=== PATIENT | female | born 1955 | race Caucasian/White ===

== ENCOUNTER 2019-10-15 08:44 | Outpatient (CLI) | payer OTHER, SELFPAY ==
--- NOTE | ~2019-10-15 | MR_ITS ---
EXAMINATION: MR shoulder RT wo con DATE: 10/15/2019 10:16 INDICATION: Right shoulder pain. TECHNIQUE: Magnetic resonance imaging (MRI) of the right shoulder was performed without intravenous c ontrast. Sequences included axial PD-weighted FS FSE, coronal oblique PD-weighted FS FSE and T2-weigh sunitha FS FSE, and sagittal oblique T2-weighted FS FSE and T1-weighted FSE. COMPARISON: Right shoulder radiographs 08/30/2019 FINDINGS: Coracoacromial arch: The acromion undersurface is curved in morphology (type II). There is moderate acromioclavicular join t osteoarthritis. There is moderate subacromial/subdeltoid bursitis. Rotator cuff: There is a bursal-sided partial-thickness tear of supraspinatus tendon at its distal insertion measur ing 6 mm anterior to posterior by 4 mm proximal to distal by 50% tendon thickness. There is an articu lar-sided, partial-thickness tear of the conjoined portion of the supraspinatus and infraspinous tend ons measuring 1.4 cm proximal to distal by 6 mm anterior to posterior by 50% tendon thickness. There is a 16 x 10 mm ganglion cyst in infraspinatus muscle at the level of the glenohumeral joint. Teres minor tendon is normal. There is mild subscapularis tendinopathy. There is no asymmetric fatty atroph y of the rotator cuff muscle bellies. Biceps tendon and glenoid labrum: Biceps tendon is in bicipital groove. There is moderate intra-articular biceps tendinopathy. There ar e degenerative tears of the glenoid labrum. Fluid: There is a moderate-sized glenohumeral joint effusion. Bones/cartilage: There is shallow partial-thickness cartilage loss of humeral head and glenoid. Osteophytes are noted. IMPRESSION: 1. Severe rotator cuff tendinopathy with partial-thickness tears. 2. Mild glenohumeral joint chondrosis. 3. Moderate-sized glenohumeral joint effusion. 4. Moderate subacromial/subdeltoid bursitis. 5. Moderate intra-articular biceps tendinopathy. 6. Moderate acromioclavicular joint osteoarthritis. Reviewed, dictated and finalized at location A.
== END 2019-10-15 08:45 | disposition home or self-care (01) ==
PROVIDERS: Visit Provider Orthopaedic Surgery
DX: M19.011 Primary osteoarthritis, right shoulder (principal); M75.51 Bursitis of right shoulder; M25.461 Effusion, right knee
CPT/HCPCS: 73221

== ENCOUNTER 2019-11-14 13:01 | Outpatient (CLI) | payer OTHER, SELFPAY ==
--- NOTE | 2019-11-14 13:13 | ECG_ITS ---
Measurements Intervals [place] Rate: 66 P: 30 HI: 142 QRS: 15 QRSD: 104 T: 37 QT: 388 QTc: 409 Interpretive Statements SINUS RHYTHM DELAYED PRECORDIAL R/S TRANSITION MINIMAL Q WAVES- INFERIOR LEADS BASELINE ARTIFACT- II, III, AVL, AVF BORDERLINE ECG Electronically Signed On 11-14-2019 13:33:07 CDT by Lorenzo Diaz D.O.
== END 2019-11-14 13:02 | disposition home or self-care (01) ==
PROVIDERS: PCP Family Medicine; Visit Provider Anesthesiology
DX: Z01.810 Encounter for preprocedural cardiovascular examination (principal); Z87.891 Personal history of nicotine dependence
CPT/HCPCS: 93005

== ENCOUNTER 2019-11-16 06:16 | Outpatient (CLI) | payer OTHER, SELFPAY ==
[2019-11-16 16:20] LABS: SARS-CoV-2 RNA PCR Negative
== END 2019-11-16 06:17 | disposition home or self-care (01) ==
LOC: ANHCOVIDDT 06:17
PROVIDERS: PCP Family Medicine; Visit Provider Orthopaedic Surgery
DX: Z01.818 Encounter for other preprocedural examination (principal); M75.101 Unspecified rotator cuff tear or rupture of right shoulder, not specified as traumatic; Z11.59 Encounter for screening for other viral diseases
CPT/HCPCS: 87635; C9803; U0003

== ENCOUNTER 2019-11-19 00:22 | Day surgery (SDC) | payer OTHER, SELFPAY ==
[2019-11-13 14:20] VITALS: BMI 36.1
[2019-11-19] VITALS (9 sets, daily range): BP systolic 106–135; BP diastolic 58–84; PULSE 68–87; RESP 13–20; TEMP 36.2; O2SAT 93–100
[2019-11-19] MEDS: LACTATED RINGERS 1,000 ML 30 ML IV CONT ×2 (06:45→08:49)
--- NOTE | 2019-11-19 06:53 | WPDANESEPPF ---
Anes - Initial Pre Proc Eval Procedure: Operation Date: 11/19/19 07:30 Proposed Procedures p Right Rotator Cuff Repair with Distal Clavicle Excision - Jhonathan Velasco MD Date/Time: 11/19/19 06:53 Surgeon: Jhonathan Velasco MD Pre Op Diagnosis: Right Rotator Cuff Tear, AC Arthritis Patient Data Age: 64 Gender: F Height: 5 ft 3 in Weight: 92.53 kg Allergies Allergy/AdvReac Type Severity Reaction Status Date / Time No Known Allergies Allergy Verified 11/13/19 14:21 Home Medications Medication Instructions Recorded Confirmed Type amitriptyline 50 mg tablet 50 mg PO HS 08/30/19 11/13/19 History omeprazole 40 mg capsule,delayed 40 mg PO DAILY 08/30/19 11/13/19 History release sertraline 100 mg tablet 100 mg PO DAILY 08/30/19 11/13/19 History tramadol 50 mg tablet 50 mg PO Q12H PRN #30 tablet 10/23/19 11/13/19 Rx L.acid-B.bifidum-B.animal-FOS 100 mg PO DAILY 11/13/19 11/13/19 History [Probiotic Complex] Vitamin D3 1 tablet PO DAILY 11/13/19 11/13/19 History ascorbic acid-collagen [Collagen 1 cap PO DAILY 11/13/19 11/13/19 History Plus Vitamin C] calcium carbonate [Calcium 600] 600 mg PO DAILY 11/13/19 11/13/19 History gabapentin 1,200 mg PO HS 11/13/19 11/13/19 History multivitamin 1 tablet PO DAILY 11/13/19 11/13/19 History omega 8-vin-bcn-fish oil [Fish Oil] 1 cap PO DAILY 11/13/19 11/13/19 History vitamin B complex 1 tablet PO DAILY 11/13/19 11/13/19 History zolpidem 5 mg PO HS PRN 11/13/19 11/13/19 History Patient hx anesthesia problems: none Family hx anesthesia problems: none PMFSH Past Medical History Medical History ADHD Allergies Anxiety disorder Arthritis Asthma Bronchitis Heartburn Perspiration excessive Pneumonia Trigger finger Surgical History Surgical History H/O: section 01/13/1998- Dr. Adamson History of appendectomy History of back surgery Dr. Baca History of carpal tunnel release History of cholecystectomy History of rotator cuff surgery left shoulder S/P trigger finger release Family History Family History Mother Hypertension Father Hypertension Social History Social History Smoking status: Former smoker Additional smoking assessment comments: Smoked for 30 years Alcohol intake: current Additional living arrangements comments: (Alvaro) and Son(Leola) Gender identity (if verbalized by the patient): Female Anes - Eval Final PreProcedure Day of Procedure 11/19/19 06:53 Patient weight: obese Heart: regular rate and rhythm Lungs: clear to auscultation Airway: Mallampati scale class II and other (clear upper plastic tertainer because of loose molar) Neurological: alert and oriented Last oral intake: >/= 8 hours ASA classification: III Emergent: no Anesthetic plan: proceed Anesthesia type and monitoring: general ETT and standard monitoring Informed Consent: The patient's anesthetic plan and its attendant risks and benefits were discussed with the patient/family/POA. Questions were solicited and answers provided to the satisfaction of the patient/family/POA.
--- NOTE | 2019-11-19 07:23 | WPDHPUPDATE1 ---
History and Physical Update Update Date/Time: 11/19/19 07:23 History and Physical has been reviewed, including an updated exam of the patient. There are NO changes in the patient's condition. Risks, benefits, and alternatives have been discussed and questions answered. Patient agrees to proceed with procedure.
[2019-11-19] MEDS: ceFAZolin 2 GM/D5W 50 ML 2 GM/50 ML BAG IVPB (07:30)
--- NOTE | 2019-11-19 07:41 | WPDANESPNB ---
Anes - Peripheral Nerve Block Date/Time: 11/19/19 07:41 I have discussed with the patient/family/POA the placement of a peripheral nerve block for post-operative pain management, including associated risks, benefits, complications, and side effects. Alternative methods of post-operative analgesia were detailed. Questions were solicited and answers provided to the satisfaction of the patient/family/POA. Time-Out: A pre-procedural Time-Out was completed immediately before starting the procedure and confirmed: Patient Identification, Site, Procedure, Patient Position and the Availability of Requisite Equipment. Clinical Indications: Acute post-operative pain management requested by the operative surgeon. Nerve Block Insertion Note Anes-nerve block: interscalene right Patient position: supine Skin prep: chlorhexidine Needle: 22 gauge, stimulating, insulated echogenic needle. Needle length: 50 mm Technique: nerve stimulation lost at (mA) (0.4) and ultrasound Injectate: bupivacaine 0.5% with epi 5 mcg/ml (30) and dexamethasone (mg) (8) Observations: tolerated well Complications: none Procedure start time:: Procedure end time:: 5
[2019-11-19] MEDS: BUPIVACAINE/EPINEPHRINE 0.25% 50 ML VIAL 10 ML INFILTRATE (08:02)
--- NOTE | 2019-11-19 09:06 | P.OP_ITS ---
Procedure Note - Detailed Date of procedure: 11/19/19 Pre-op diagnosis: Right Rotator Cuff Tear, AC Arthritis Post-op diagnosis: same Procedure performed: Right shoulder open anterior acromioplasty, distal clavicle excision and repair of the rotator cuff Description of procedure: Patient was identified and proper site identified. In the preop holding area the anesthesia team performed a right upper extremity block. She was then taken to the operating room and transferred to the or table taking care to pad the torso and extremities. After general anesthetic induction and intubation, she was put in a semi beach chair position in the u sual manner for a right shoulder procedure. Her head was secured taking care to neither rotate nor extend the head and neck. The right upper extremity was prepped and draped free in usual sterile fashion. The subcutaneous tissue in the area of the incision was injected with 10 cc of 0.25% Marcaine and epinephrine solution. An oblique anterior incision was made extending from the AC joint distally in line with the fibers of the deltoid. Subcutaneous tissue was sharply dissected down to the deltoid fascia. The deltoid was dissected off the anterior portion of the acromion in the distal end of the clavicle. A 2 cm split was made at the junction between the anterior and middle thirds of the deltoid. Using the microsagittal saw the last 8 mm of clavicle removed. The saw was also used to perform the acromioplasty and then the undersurface of the acromion was rasped smooth. The rotator cuff was examined. There was an area of near complete tearing of the anterior portion of the supraspinatus on the greater tuberosity. The thinned remaining portion of the tendon was released, the tendon edge freshened up and the tuberosity prepared for the repair. The repair was able to be accomplished with the patient's arm at her side. 2. Ethibond sutures passed through bone were used to repair the tendon back to the tuberosity and side to side repair also carried out with 2. Ethibond suture. This gave a arrington repair which was stable as the shoulder was taken through range of motion. The wound was irrigated with sterile NaCl solution. The deltoid was repaired back to the acromion with 2. Ethibond suture passed through bone and the remainder of the deltoid repair carried out with 2. Vicryl. Subcutaneous tissue was reapproximated with 2. Strata fix and then tissue adhesive used for the skin. Sterile dressing was applied. There were no known intraoperative complications, and perioperative antibiotics were administered. Surgeon: Jhonathan Velasco MD
[2019-11-19] MEDS: ONDANSETRON INJ 4 MG/2 ML VIAL IV PUSH (10:06)
== END 2019-11-19 10:50 | disposition home or self-care (01) ==
PROVIDERS: PCP Family Medicine; Visit Provider Orthopaedic Surgery
PROC: (CPT 23420; principal; 2019-11-19 07:30)
DX: M75.101 Unspecified rotator cuff tear or rupture of right shoulder, not specified as traumatic (principal); M19.011 Primary osteoarthritis, right shoulder; G89.18 Other acute postprocedural pain; J45.909 Unspecified asthma, uncomplicated; F90.9 Attention-deficit hyperactivity disorder, unspecified type; F41.9 Anxiety disorder, unspecified; Z87.891 Personal history of nicotine dependence; E66.9 Obesity, unspecified; Z68.36 Body mass index [BMI] 36.0-36.9, adult
CPT/HCPCS: 23412; 23120; 64415; A4565; J0690; J1100; J2250; J2405; J2704; J2710; J3010; J7120

== ENCOUNTER 2020-01-18 00:58 | Outpatient (CLI) | payer OTHER, SELFPAY ==
[2020-01-18 18:04] LABS: SARS-CoV-2 RNA PCR Negative
== END 2020-01-18 00:59 | disposition home or self-care (01) ==
LOC: ANHCOVIDDT 00:58
PROVIDERS: PCP Family Medicine; Visit Provider Orthopaedic Surgery
DX: Z01.812 Encounter for preprocedural laboratory examination (principal); Z11.59 Encounter for screening for other viral diseases
CPT/HCPCS: 87635; C9803; U0003

== ENCOUNTER 2020-01-21 03:02 | Day surgery (SDC) | payer OTHER, SELFPAY ==
[2020-01-10 08:56] VITALS: BMI 37.9
--- NOTE | 2020-01-21 10:20 | WPDHPUPDATE1 ---
History and Physical Update Update Date/Time: 01/21/20 10:20 History and Physical has been reviewed, including an updated exam of the patient. There are NO changes in the patient's condition. Risks, benefits, and alternatives have been discussed and questions answered. Patient agrees to proceed with procedure.
[2020-01-21 10:30] VITALS: BP 117/77; PULSE 70; RESP 18; TEMP 36.4; O2SAT 98
[2020-01-21] MEDS: KETOROLAC 15 MG/ML VIAL (*BKC) IV PUSH (10:30)
[2020-01-21] MEDS: LACTATED RINGERS 1,000 ML 30 ML IV CONT (10:30)
--- NOTE | 2020-01-21 10:33 | WPDANESEPPF ---
Anes - Initial Pre Proc Eval Procedure: Operation Date: 01/21/20 12:00 Proposed Procedures p Left Fourth Trigger Finger Release - Jhonathan Velasco MD Date/Time: 01/21/20 10:33 Surgeon: Jhonathan Velasco MD Pre Op Diagnosis: Left Fourth Trigger Finger Patient Data Age: 64 Gender: F Height: 5 ft 3 in Weight: 97.07 kg Allergies Allergy/AdvReac Type Severity Reaction Status Date / Time No Known Allergies Allergy Verified 01/10/20 08:57 Home Medications Medication Instructions Recorded Confirmed Type amitriptyline 50 mg tablet 50 mg PO HS 08/30/19 01/10/20 History omeprazole 40 mg capsule,delayed 40 mg PO DAILY 08/30/19 01/10/20 History release sertraline 100 mg tablet 100 mg PO DAILY 08/30/19 01/10/20 History tramadol 50 mg tablet 50 mg PO Q12H PRN #30 tablet 10/23/19 01/10/20 Rx Collagen Plus Vitamin C 1 cap PO DAILY 11/13/19 01/10/20 History Probiotic Complex 100 mg PO DAILY 11/13/19 01/10/20 History Vitamin D3 1 tablet PO DAILY 11/13/19 01/10/20 History calcium carbonate [Calcium 600] 600 mg PO DAILY 11/13/19 01/10/20 History gabapentin 1,200 mg PO HS 11/13/19 01/10/20 History multivitamin 1 tablet PO DAILY 11/13/19 01/10/20 History omega 2-jxd-pjm-fish oil [Fish Oil] 1 cap PO DAILY 11/13/19 01/10/20 History vitamin B complex 1 tablet PO DAILY 11/13/19 01/10/20 History zolpidem 5 mg PO HS PRN 11/13/19 01/10/20 History Patient hx anesthesia problems: post op nausea/vomiting Family hx anesthesia problems: none PMFSH Past Medical History Medical History ADHD Allergies Anxiety disorder Arthritis Asthma BMI 33.0-33.9,adult Bronchitis Heartburn Perspiration excessive Pneumonia Trigger finger Surgical History Surgical History H/O shoulder surgery Right shoulder open anterior acromioplasty November 2019 - Dr. Velasco H/O: section 01/13/1998- Dr. Adamson History of appendectomy History of back surgery Dr. Baca History of carpal tunnel release History of cholecystectomy History of rotator cuff surgery left shoulder S/P trigger finger release Family History Family History Mother Hypertension Father Hypertension Social History Social History Smoking packs per day: 1.5 Smoking cigarettes per day: 30.0 Years smoked: 25 Smoking pack-years: 37.50 Smoking status: Former smoker Tobacco type: cigarettes Additional smoking assessment comments: QUIT 20 YEARS AGO Alcohol intake: current Additional living arrangements comments: (Alvaro) and Son(Leola) Gender identity (if verbalized by the patient): Female Spiritual care concerns: No Anes - Eval Final PreProcedure Day of Procedure 01/21/20 10:33 Patient weight: obese Heart: regular rate and rhythm Lungs: clear to auscultation Airway: Mallampati scale class II Neurological: alert and oriented Last oral intake: >/= 8 hours ASA classification: II Emergent: no Anesthetic plan: proceed Anesthesia type and monitoring: general GIVS and standard monitoring Informed Consent: The patient's anesthetic plan and its attendant risks and benefits were discussed with the patient/family/POA. Questions were solicited and answers provided to the satisfaction of the patient/family/POA.
[2020-01-21] MEDS: ACETAMINOPHEN 500 MG TABLET 1000 MG PO (11:06)
[2020-01-21] MEDS: SCOPOLAMINE 1.5 MG PATCH TRANSDERM (11:07)
[2020-01-21] MEDS: ceFAZolin 2 GM/D5W 50 ML 2 GM/50 ML BAG IVPB (11:51)
[2020-01-21 12:23] VITALS: BP 109/68; PULSE 68; RESP 16; O2SAT 93
--- NOTE | 2020-01-21 12:30 | PM.PROC ---
Procedure Note - Detailed Date of procedure: 01/21/20 Pre-op diagnosis: Left Fourth Trigger Finger Post-op diagnosis: same Procedure performed: Left fourth trigger finger release Description of procedure: The patient was identified and proper site identified. She was taken to the operating room and transferred to the OR table placing her supine taking care to pad her torso and extremities. A nonsterile tourniquet was placed high on the left arm. Left upper extremity is prepped and draped free in the usual sterile fashion. After she was administered IV sedation, several cc of 4% plain Marcaine was injected into the subcutaneous tissue over the A1 rica of the left fourth digit. The extremities exsanguinated tourniquet was inflated to 200 mmHg remaining up for about 7 minutes. Longitudinal incision was made over the A1 rica. Subcutaneous tissue was bluntly dissected protecting neurovascular structures. A1 rica was identified and then divided longitudinally in line with the tendons. The tendons were delivered into the wound to verify the adequacy of the release. Wounds irrigated with sterile antibiotic solution. Hemostasis carried out. Skin edges reapproximated with four 0 nylon suture and a sterile dressing was applied. Tourniquet was released. She tolerated the procedure well was taken recovery area in stable condition. There were no known intraoperative complications. Estimated blood loss was negligible. She received perioperative antibiotics. Surgeon: Jhonathan Velasco MD Fringe Knotter: Amanuel Sotelo Estimated blood loss (mL): 1 Tourniquet time (min): 7 Drains: No Packing: No Pathology: none sent Complications: No immediate complications Condition: stable Disposition: PACU
[2020-01-21 12:55] VITALS: BP 126/70; PULSE 68
[2020-01-21 13:15] VITALS: BP 128/75; PULSE 61
== END 2020-01-21 13:25 | disposition home or self-care (01) ==
PROVIDERS: PCP Family Medicine; Visit Provider Orthopaedic Surgery
PROC: (CPT 26055; principal; 2020-01-21 12:00)
DX: M65.342 Trigger finger, left ring finger (principal); F90.9 Attention-deficit hyperactivity disorder, unspecified type; F41.1 Generalized anxiety disorder; J45.909 Unspecified asthma, uncomplicated; Z87.891 Personal history of nicotine dependence; E66.9 Obesity, unspecified; Z68.38 Body mass index [BMI] 38.0-38.9, adult
CPT/HCPCS: 26055; 87635; A9270; C9803; J0690; J1885; J2250; J2704; J3010; J7120; U0003

== ENCOUNTER 2020-05-15 07:45 | Outpatient (CLI) | payer OTHER, SELFPAY ==
--- NOTE | ~2020-05-15 | MM_ITS ---
EXAMINATION: MM screening deanna BI w bernie HISTORY: Screening TECHNIQUE: Craniocaudal and mediolateral oblique 3-D tomosynthesis images were obtained and synthetic 2-D images were generated. CAD analysis was submitted and interpreted. COMPARISON: 09/26/2018 BREAST PARENCHYMAL COMPOSITION: There are scattered areas of fibroglandular density. FINDINGS: There is no evidence of suspicious mass, calcification, or architectural distortion to sugg est malignancy in either breast. There has been no suspicious interval change. IMPRESSION: 1. No mammographic evidence of malignancy. 2. Recommend routine screening mammography in one year. BI-RADS Category 1: Negative Reviewed, dictated and finalized at location A. UTIVE COACH
== END 2020-05-15 07:46 | disposition home or self-care (01) ==
LOC: ANHIMG 07:48
PROVIDERS: PCP Family Medicine; Visit Provider Family Medicine
DX: Z12.31 Encounter for screening mammogram for malignant neoplasm of breast (principal)
CPT/HCPCS: 77063; 77067

== ENCOUNTER → 2020-07-22 12:26 | Outpatient (CLI) | payer OTHER, SELFPAY ==
--- NOTE | ~2020-07-22 | MR_ITS ---
EXAMINATION: MR cervical spine wo con DATE: 07/22/2020 13:22 INDICATION: Cervical myelopathy. TECHNIQUE: Magnetic resonance imaging (MRI) of the cervical spine was performed without intravenous c ontrast. Sequences included sagittal T2-weighted FSE, sagittal STIR FSE, sagittal T1-weighted FSE, ax ial MERGE, and axial T2-weighted FSE. COMPARISON: None FINDINGS: There is kyphosis of cervical spine. There is 3 degrees levocurvature of cervical spine. Th ere is 2 mm retrolisthesis of C4 on C5 and C5 on C6. Vertebral body heights are normal. There is mode rately decreased disc height at C4-C5 and C5-C6 and mildly decreased disc height at C6-C7. The spinal cord signal intensity is normal. The following disc levels are specifically discussed: C2-C3: The disc does not extend beyond the endplate margin. There is no uncovertebral joint osteoarth ritis. There is mild bilateral facet joint osteoarthritis. There is mild left neural foraminal stenos is. There is no central canal stenosis. C3-C4: The disc does not extend beyond the endplate margin. There is mild left uncovertebral joint os teoarthritis. There is no facet joint osteoarthritis. There is no neural foraminal stenosis. There is no central canal stenosis. C4-C5: The disc is bulging. There is severe right and moderate left uncovertebral joint osteoarthriti s. There is severe right and mild left facet joint osteoarthritis. There is moderate right and mild l eft neural foraminal stenosis. There is mild central canal stenosis with ventral indentation of the s melisa cord. C5-C6: The disc is bulging. There is severe bilateral uncovertebral joint osteoarthritis. There is mi ld right and moderate left facet joint osteoarthritis. There is mild bilateral neural foraminal steno sis. There is mild central canal stenosis with ventral indentation of the spinal cord. C6-C7: The disc is bulging. There is moderate bilateral uncovertebral joint osteoarthritis. There is mild bilateral facet joint osteoarthritis. There is mild bilateral neural foraminal stenosis. There i s mild central canal stenosis. C7-T1: The disc does not extend beyond the endplate margin. There is no uncovertebral joint osteoarth ritis. There is mild right and moderate left facet joint osteoarthritis. There is mild left neural fo raminal stenosis. There is no central canal stenosis. IMPRESSION: 1. Moderate cervical spondylosis. Reviewed, dictated and finalized at location A. ENT RELATIONS DIRECTOR
--- NOTE | ~2020-07-22 | MR_ITS ---
EXAMINATION: MR brain/brain stem wo con EXAM DATE: 07/22/2020 13:18 INDICATION: Generalized headache. Dizziness. TECHNIQUE: Magnetic resonance imaging (MRI) of the brain/brain stem obtained without contrast. Sagitt al T1, axial diffusion, gradient echo (T2*), T1, T2, FLAIR sequences obtained. Correlation is made t o head CT 02/23/2011. FINDINGS: There are no areas of restricted diffusion to suggest acute infarction. There is no acute hemorrhage seen on the T2*, a hemosiderin sensitive sequence. No intraparenchymal brain mass lesion. There is mild periventricular and subcortical T2/FLAIR signal hyperintensity, nonspecific but probab ly related to small vessel ischemic disease (microangiopathy). There is mild prominence of the sulc i and ventricles related to cerebral atrophy. There are no extra-axial collections. Flow voids are seen in the cerebral arteries on the T2-weighted sequences consistent with their expected patency. T he orbits are unremarkable. Soft tissue is unremarkable. IMPRESSION: 1. No acute intracranial findings. 2. Chronic age related findings. Reviewed, dictated and finalized at location B. 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
== END ==
PROVIDERS: PCP Family Medicine; Visit Provider Psychiatry & Neurology Neurology
DX: R51.9 Headache, unspecified (principal); G95.9 Disease of spinal cord, unspecified; M47.892 Other spondylosis, cervical region
CPT/HCPCS: 70551; 72141

== ENCOUNTER 2022-03-25 10:41 | Outpatient (CLI) | payer OTHER, SELFPAY ==
--- NOTE | ~2022-03-25 | MM_ITS ---
EXAMINATION: MM screening deanna BI w bernie HISTORY: Screening mammogram TECHNIQUE: Craniocaudal and mediolateral oblique 3-D tomosynthesis images were obtained and synthetic 2-D images were generated. CAD analysis was submitted and interpreted. COMPARISON: 05/15/2020, 09/26/2018 bilateral screening mammogram examinations BREAST PARENCHYMAL COMPOSITION: There are scattered areas of fibroglandular density. FINDINGS: Occasional bilateral benign calcifications. There is no evidence of suspicious mass, calcif ication, or architectural distortion to suggest malignancy in either breast. There has been no suspic ious interval change. IMPRESSION: 1. No mammographic evidence of malignancy. 2. Recommend routine screening mammography in one year. BI-RADS Category 1: Negative Reviewed, dictated and finalized at location A.
== END 2022-03-25 10:42 | disposition home or self-care (01) ==
PROVIDERS: PCP Family Medicine; Visit Provider Family Medicine
DX: Z12.31 Encounter for screening mammogram for malignant neoplasm of breast (principal)
CPT/HCPCS: 77063; 77067

== ENCOUNTER → 2022-09-20 14:42 | Outpatient (CLI) | payer OTHER, SELFPAY ==
--- NOTE | ~2022-09-20 | DEXA_ITS ---
Bone Density Report Name: KATIUSKA COLEY I Age: 67 Sex: Female Ethnicity: White Date of : 1955 Indication: postmenopausal; screening for osteoporosis; asthma or emphysema; Referring Provider: Edwin, Rachel Mahoney Study: Bone densitometry was performed. Exam Date: September 20, 2022 Accession number: [id number] Bone Density: Region BMD T-score Z-score Classification AP Spine (L1, L2, L3) 1.139 1.1 2.9 Normal Femoral Neck (Left) 0.769 -0.7 0.8 Normal Total Hip (Left) 0.915 -0.2 1.0 Normal Femoral Neck (Right) 0.817 -0.3 1.2 Normal Total Hip (Right) 0.914 -0.2 1.0 Normal Total Hip Mean 0.915 -0.2 1.0 Normal World Health Organization criteria for BMD impression classify patients as: Normal (T-score at or above -1.0), Osteopenia (T-score between -1.0 and -2.5), or Osteoporosis (T-score at or below -2.5). 10-year Fracture Risk: FRAX not reported because: All T-scores for Spine Total, Hip Total, Femoral Neck at or above -1.0 Clinical Information Provided by Patient: Has the following medical conditions: Asthma or Emphysema Patient maximum height was 63 Menopause Age: 52 No regular weight bearing exercise Drinks caffeinated beverages Onset of menses at age 12 Number of children 1 Impression: The patient has normal bone mass. Discussion: BONE DENSITY IS ABOVE THE MINIMUM DESIRABLE LEVEL AT ALL SKELETAL SITES TESTED. This patient?s bone mineral density is above the minimum desirable level (T-score -1.0 or better) at all sites measured. The patient should follow a healthful lifestyle (good nutrition with adequate calcium and vitamin D, and appropriate weight-bearing exercise). Follow-Up: Consider repeating this study in 5 years or sooner if there is some new clinical indication. Reported by: BREANA on 09/20/2022 3:06:00 PM. Reviewed, dictated and finalized at location AEdna LAU
== END ==
PROVIDERS: PCP Family Medicine; Visit Provider Family Medicine
DX: Z78.0 Asymptomatic menopausal state (principal)
CPT/HCPCS: 77080

== ENCOUNTER 2022-10-10 11:26 | Emergency (ER) | payer OTHER, SELFPAY ==
[2022-10-10 11:37] VITALS: BP 111/73; PULSE 68; RESP 18; TEMP 37.1; O2SAT 99
--- NOTE | 2022-10-10 11:46 | ED.URI ---
HPI - URI/Sore Throat General Chief Complaint: Upper Respiratory Infection Stated Complaint: Covid+ Time Seen by Provider: 10/10/22 11:46 Source: patient Mode of arrival: ambulatory Limitations: no limitations History of Present Illness HPI Narrative: 67-year-old female presents with complaint nasal congestion, headache, cough, fatigue body aches starting yesterday. Swabbed herself for COVID this morning and was positive. Patient reports due to her autoimmune disorder She would like a prescription for Paxlovid open. Patient had COVID in June and took Paxlovid. Denies chest pain and shortness of breath. Afebrile. Denies nausea vomiting diarrhea. All systems reviewed and negative except as noted above. Related Data Home Medications Medication Instructions Recorded Confirmed omeprazole 40 mg capsule,delayed 40 mg PO DAILY 08/30/19 05/08/20 release sertraline 100 mg tablet 100 mg PO DAILY 08/30/19 05/08/20 zolpidem 5 mg tablet 5 mg PO HS 11/13/19 05/08/20 atorvastatin 10 mg tablet mg 10/10/22 dextroamphetamine-amphetamine ER PO 10/10/22 15 mg 24hr capsule,extend release esketamine 84 mg (28 mg x 3) nasal mg intranasal 10/10/22 spray (Spravato) etanercept 50 mg/mL (1 mL) mg subcut 10/10/22 subcutaneous cartridge (Enbrel Mini) pregabalin 100 mg capsule mg 10/10/22 trazodone 150 mg tablet mg 10/10/22 Allergies Allergy/AdvReac Type Severity Reaction Status Date / Time No Known Allergies Allergy Verified 10/10/22 11:34 Review of Systems Review of Systems: CONSTITUTIONAL: Denies fever, chills, or sweats. reports fatigue. EYES: Denies visual changes, redness, or discharge. ENT: Reports rhinorrhea, congestion. Denies sore throat, or otalgia. CARDIOVASCULAR: Denies chest pain, palpitations, or edema. RESPIRATORY: reports cough. Denies dyspnea. GASTROINTESTINAL: Denies abdominal pain, nausea, vomiting, or diarrhea. GENITOURINARY: Denies dysuria or hematuria. SKIN: Denies rash or itching. MUSCULOSKELETAL: Denies back pain, joint pain, or myalgia. NEUROLOGIC: Reports headache. Denies numbness, or weakness. PSYCHIATRIC: Denies anxiety or depression. All other systems reviewed are negative, except as documented in HPI. [facility] Past Medical History Medical History (Updated 10/10/22 @ 11:56 by Liliana Hansen NP) ADHD Allergies Anxiety disorder Arthritis Asthma BMI 33.0-33.9,adult Bronchitis Heartburn Osteoarthritis of left knee Perspiration excessive Pneumonia Trigger finger Surgical History Surgical History H/O shoulder surgery Right shoulder open anterior acromioplasty November 2019 - Dr. Velasco H/O: section 01/13/1998- Dr. Adamson History of appendectomy History of back surgery Dr. Baac History of carpal tunnel release History of cholecystectomy History of rotator cuff surgery left shoulder S/P trigger finger release Family History Family History Mother Hypertension Father Hypertension Social History Social History Smoking packs per day: 1.5 Smoking cigarettes per day: 30.0 Years smoked: 25 Smoking pack-years: 37.50 Smoking status: Former smoker Tobacco type: cigarettes Additional smoking assessment comments: QUIT 20 YEARS AGO Alcohol intake: current Alcohol use details: Occasional Living arrangements: with family Additional living arrangements comments: (Alvaro) and Son(Leola) Gender identity (if verbalized by the patient): Female Spiritual care concerns: No Comments At time of signature, agree with nursing past medical, surgical, social and family history. There is no relevant family history pertinent to the presenting complaint. Exam Narrative: GENERAL: This is a well-nourished, well-developed patient, in no apparent distress. HEAD: normocephalic,
== END 2022-10-10 12:04 | disposition home or self-care (01) ==
PROVIDERS: Emergency Provider Nurse Practitioner Family; PCP Family Medicine
DX: U07.1 COVID-19 (principal); Z87.891 Personal history of nicotine dependence; M19.90 Unspecified osteoarthritis, unspecified site; J45.909 Unspecified asthma, uncomplicated; M17.12 Unilateral primary osteoarthritis, left knee; F41.9 Anxiety disorder, unspecified
CPT/HCPCS: 99213; G0463

== ENCOUNTER 2023-03-17 15:58 | Outpatient (CLI) | payer OTHER, SELFPAY ==
--- NOTE | 2023-03-17 | ECG_ITS ---
Measurements Intervals [place] Rate: 75 P: 49 OH: 167 QRS: -5 QRSD: 102 T: 31 QT: 396 QTc: 444 Interpretive Statements SINUS RHYTHM POSSIBLE LEFT ATRIAL ENLARGEMENT INCOMPLETE RIGHT BUNDLE BRANCH BLOCK DELAYED PRECORDIAL R/S TRANSITION LOW QRS VOLTAGE IN PRECORDIAL LEADS CONSIDER INFERIOR INFARCT, AGE INDETERMINATE ABNORMAL ECG COMPARED TO ECG 11/14/2019 13:27:13 NO SIGNIFICANT CHANGES Electronically Signed On 03-17-2023 16:32:56 CDT by Lorenzo Diaz D.O.
--- NOTE | ~2023-03-17 | XR_ITS ---
EXAMINATION: XR chest 2V DATE: 03/17/2023 16:56 INDICATION: Gastroesophageal reflux. Preop. TECHNIQUE: Frontal and lateral views of the chest were obtained. COMPARISON: Chest 2 views 02/04/2015 FINDINGS: There is no pneumonia, pleural effusion, or pneumothorax. The heart size is normal. Surgica l clips in the right upper quadrant are likely from cholecystectomy. IMPRESSION: 1. No acute cardiopulmonary disease. Reviewed, dictated and finalized at location E.
[2023-03-17 17:08] LABS: Basophils Percent Auto 0.5 % (0.2-1.2); Eosinophils Percent Auto 0.5 % (0-4.4); Hematocrit 40.9 % (37.0-47.0); Hemoglobin 13.6 g/dL (12.0-15.0); Immature Granulocyte Absolute 0.04 K/mm3 (0.00-0.031); Immature Granulocyte Percent A 0.5 % (0-0.5); Lymphocytes Absolute Auto 2.16 K/mm3 (0.9-3.2); Lymphocytes Percent Auto 26.6 % (18.3-44.2); Mean Corpuscular HGB Conc 33.3 g/dl (32-36); Mean Corpuscular Hemoglobin 31.3 pg (26-34); Mean Platelet Volume 12.2 fl (7.4-10.4); Monocytes Absolute Auto 0.7 K/mm3 (0.1-0.6); Monocytes Percent Auto 8.6 % (2.6-8.5); Neutrophils Absolute Auto 5.1 K/mm3 (1.3-6.7); Neutrophils Percent Auto 63.3 % (45.5-73.1); Platelet Count Result 195 k/mm3 (150-375); Red Blood Count 4.35 M/mm3 (4.2-5.4); Red Cell Distribution Width 13.4 % (11.5-14.5); White Blood Count 8.1 K/mm3 (4.5-10.0)
[2023-03-17 17:18] LABS: Prothrombin Time 13.6 Seconds (11.1-14.7)
[2023-03-17 17:19] LABS: Partial Thromboplastin Time 25.5 SECONDS (22.3-36.8)
[2023-03-17 17:48] LABS: Alanine Aminotransferase 34 U/L (6-35); Albumin Level 4.7 g/dL (3.5-5.1); Alkaline Phosphatase 94 U/L (38-126); Anion Gap 7 mmol/L (8-16); Aspartate Amino Transferase 45 U/L (14-36); Bilirubin,Total 0.9 mg/dL (0.2-1.3); Blood Urea Nitrogen 15 mg/dL (7-17); Calcium 9.5 mg/dL (8.4-10.2); Carbon Dioxide 28 mmol/L (22-30); Chloride 101 mmol/L (98-107); Estimated Glomerular Filt Rate > 60; Glucose 85 mg/dL (65-110); Potassium 4.2 mmol/L (3.4-5.0); Sodium 136 mmol/L (137-145)
== END 2023-03-17 15:59 | disposition home or self-care (01) ==
PROVIDERS: PCP Family Medicine
DX: Z01.818 Encounter for other preprocedural examination (principal); I45.10 Unspecified right bundle-branch block
CPT/HCPCS: 36415; 71046; 80053; 85025; 85610; 85730; 93005

== ENCOUNTER 2023-08-09 15:13 | Outpatient (CLI) | payer OTHER, SELFPAY ==
--- NOTE | ~2023-08-09 | MM_ITS ---
EXAMINATION: MM screening deanna BI w bernie HISTORY: Screening TECHNIQUE: Craniocaudal and mediolateral oblique 3-D tomosynthesis images were obtained and synthetic 2-D images were generated. CAD analysis was submitted and interpreted. COMPARISON: Comparison to multiple prior studies sequentially, with oldest reviewed study dated 09/26. BREAST PARENCHYMAL COMPOSITION: There are scattered areas of fibroglandular density. FINDINGS: There is no evidence of suspicious mass, calcification, or architectural distortion to sugg est malignancy in either breast. There has been no suspicious interval change. IMPRESSION: 1. No mammographic evidence of malignancy. 2. Recommend routine screening mammography in one year. BI-RADS Category 1: Negative Reviewed, dictated and finalized at location A. 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
== END 2023-08-09 15:14 | disposition home or self-care (01) ==
PROVIDERS: Visit Provider Family Medicine
DX: Z12.31 Encounter for screening mammogram for malignant neoplasm of breast (principal)
CPT/HCPCS: 77063; 77067

== ENCOUNTER 2024-10-18 07:31 | Outpatient (CLI) | payer OTHER, SELFPAY ==
--- NOTE | ~2024-10-18 | MM_ITS ---
EXAMINATION: MM screening deanna BI w bernie HISTORY: Screening TECHNIQUE: Craniocaudal and mediolateral oblique 3-D tomosynthesis images were obtained and synthetic 2-D images were generated. CAD analysis was submitted and interpreted. COMPARISON: Comparison to multiple prior studies sequentially, with oldest reviewed study dated 09/26. BREAST PARENCHYMAL COMPOSITION: Not dense: There are scattered areas of fibroglandular density. FINDINGS: There is no evidence of suspicious mass, calcification, or architectural distortion to sugg est malignancy in either breast. There has been no suspicious interval change. IMPRESSION: 1. No mammographic evidence of malignancy. 2. Recommend routine screening mammography in one year. BI-RADS Category 1: Negative Reviewed, dictated and finalized at location A.
--- OUTSIDE RECORDS SUMMARY | 2024-10-18 07:36 | XMS_ITS | Data Portability ---
Author Organization [facility] Mario FISHER Address [address] [place] [address] Care Team Providers Care Energy Conservation Engineer Name Role Phone EL PINEDA Primary Care Provider Assessment No assessment recorded. Plan of Treatment Reminders Order Date Submit Date Provider Last Modified By Organization Details Last Modified Time Details Appointments None record ed. Lab JAISON (antin uclear antibo dies) screen , serum 2023 024 [facility], [address] [place] [address], [place] [address], [place], [address], 4 09:16:47 CMP, serum or plasma 2023 024 [facility], [address] [place] [address], [facility] [address], [place], [address], 4 03:08:37 CBC w/ auto diff 2023 024 [facility], [address] [place] [address], [facility] [address], [place], [address], 4 03:08:38 TSH, ultra- sensit dawood, serum 2023 024 [facility], [address] [place] [address], [facility] [address], [place], [address], 4 03:08:38 lipid panel, serum 2023 024 DEAN MELLO, [address], [address], [place], [address], 4 03:08:36 lipid panel, serum 2022 023 DEAN MELLO, [address], [address], [place], [address], 3 11:15:22 CMP, serum or plasma 2022 023 DEAN MELLO, [address], [address], [place], [address], 3 11:15:24 vitami n D, 25-hyd delores, total, serum 2022 023 DEAN MELLO, [address], [address], [place], [address], 3 11:15:25 CBC w/ auto diff 2022 023 DEAN MELLO, [address], [address], [place], [address], 3 11:15:25 TSH, ultra- sensit dawood, serum 2022 023 DEAN MELLO, [facility] [address], [address], [place], [address], 3 11:15:24 Referral podiat rist referr al - 69yo F with right foot pain and callou s and left foot callou s. Please evalua te and treat. 2023 024 DEAN Wes Gee DPM, [address] [facility], [place], [address], 5 09:32:07 Procedures None record ed. Surgeries None record ed. Imaging MAMMO, screen ing, digita l, bilate ral 2023 024 [facility] (Mammography) , [address], [place], [address], 4 10:17:54 Medication Orders Wegovy 0.25 mg/0.5 mL subcut aneous pen inject or 2023 024 [facility], [address] [facility], [place], [address], 4 12:16:37 triamc inolon e aceton sara 0.1 % topica l cream 2023 024 [facility]25, [address] [facility], [place], [address], 4 12:14:05 Victoz a 3-Addy 0.6 mg/0.1 mL (18 mg/3 mL) subcut aneous pen inject or 2022 023 [facility], [facility], [place], [address], 13:41:06 Victoz a 3-Addy 0.6 mg/0.1 mL (18 mg/3 mL) subcut aneous pen inject or [address] [facility], [address] [place] [address], [place], [address], 4 13:41:04 Trulic ity 0.75 mg/0.5 mL subcut aneous pen inject or [address], [address] [facility], [place], [address], 3 23:40:03 amoxic illin 875 mg-pot assium clavul anate 125 mg tablet 2022 023 vanessa [facility] 2425, [address], [place], [address], 11:33:38 predni sone 20 mg tablet 2022 023 [email or web address] [facility] 2425, [address], [place], [address], 23:39:07 Patient TargetsNo targets recorded. 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 Please evaluate and treat. Referring Physician: El Pineda, Traffic Expert, Encounter Date: 05/15/2024 Results Created Date Observation Date Name Description Value Unit Range Abnormal Flag Note LastModifiedBy Organization Detail LastModifiedTime 12/14/1912/14/2022 TSH TSH 0.986 uIU/m L 0.450- 4.500 Not Available [facility] ([facility]) [address] [facility], [place], [address], 12/14/2022 11:15:24 12/14/1912/14/2022 CBC WITH DIFFE RENTI AL/PL ATELE T WBC 8.9 x10e3 /uL 3.4-10 .8 Not Available [facility] ([facility]) [address] [facility], [place], [address], 12/14/2022 11:15:25 12/14/19 23 12/14/2022 CBC WITH DIFFE RENTI AL/PL ATELE T RBC 4.94 x10e6 /uL 3.77-5 .28 Not Available [facility] ([facility]) [address] [facility], [place], [address], 12/14/2022 11:15:25 12/14/19 23 12/14/2022 CBC WITH DIFFE RENTI AL/PL ATELE T hemoglobin 14.9 g/dL 11.1-1 5.9 Not Available [facility] ([facility]) [address] [place], [address], 12/14/2022 11:15:25 12/14/19 23 12/14/2022 CBC WITH DIFFE RENTI AL/PL ATELE T hematocrit 43.8 % 34.0-4 6.6 Not Available [facility] ([facility]) [address] [facility], [place], [address], 12/14/2022 11:15:25 12/14/19 23 12/14/2022 CBC WITH DIFFE RENTI AL/PL ATELE T MCV 89 fL 79-97 Not Available [facility] ([facility]) [address] [place], [address], 12/14/2022 11:15:25 12/14/19 23 12/14/2022 CBC WITH DIFFE RENTI AL/PL ATELE T MCH 30.2 pg 26.6-3 3.0 Not Available [facility] ([facility]) [address] [place], [address], 12/14/2022 11:15:25 12/14/19 23 12/14/2022 CBC WITH DIFFE RENTI AL/PL ATELE T MCHC 34.0 g/dL 31.5-3 5.7 Not Available [facility] ([facility]) [address] [place], [address], 12/14/2022 11:15:25 12/14/19 23 12/14/2022 CBC WITH DIFFE RENTI AL/PL ATELE T RDW 14.2 % 11.7-1 5.4 Not Available [facility] ([facility]) [address] [facility], [place], [address], 12/14/2022 11:15:25 12/14/19 23 12/14/2022 CBC WITH DIFFE RENTI AL/PL ATELE T platelets 221 x10e3 /uL 150-45 0 Not Available [facility] ([facility]) [address] [facility], [place], [address], 12/14/2022 11:15:25 12/14/19 23 12/14/2022 CBC WITH DIFFE RENTI AL/PL ATELE T neutrophils 69 % notest ab. Not Available [facility] ([facility]) [address] [facility], [place], [address], 12/14/2022 11:15:25 12/14/19 23 12/14/2022 CBC WITH DIFFE RENTI AL/PL ATELE T lymphs 23 % notest ab. Not Available [facility] ([facility]) [address] [facility], [place], [address], 12/14/2022 11:15:25 12/14/19 23 12/14/2022 CBC WITH DIFFE RENTI AL/PL ATELE T monocytes 6 % notest ab. Not Available [facility] ([facility]) [address] [facility], [place], [address], 12/14/2022 11:15:25 12/14/19 23 12/14/2022 CBC WITH DIFFE RENTI AL/PL ATELE T eos 2 % notest ab. Not Available [facility] ([facility]) [address] [facility], [place], [address], 12/14/2022 11:15:25 12/14/19 23 12/14/2022 CBC WITH DIFFE RENTI AL/PL ATELE T basos 0 % notest ab. Not Available [facility] ([facility]) [address] [facility], [place], [address], 12/14/2022 11:15:25 12/14/19 23 12/14/2022 CBC WITH DIFFE RENTI AL/PL ATELE T neutrophils (absolute) 6.1 x10e3 /uL 1.4-7. 0 Not Available [facility] ([facility]) [address] [facility], [place], [address], 12/14/2022 11:15:25 12/14/19 23 12/14/2022 CBC WITH DIFFE RENTI AL/PL ATELE T lymphs (absolute) 2.1 x10e3 /uL 0.7-3. 1 Not Available [facility] ([facility]) [address] [facility], [place], [address], 12/14/2022 11:15:25 12/14/19 23 12/14/2022 CBC WITH DIFFE RENTI AL/PL ATELE T monocytes(ab solute) 0.6 x10e3 /uL 0.1-0. 9 Not Available [facility] ([facility]) [address] [facility], [place], [address], 12/14/2022 11:15:25 12/14/19 23 12/14/2022 CBC WITH DIFFE RENTI AL/PL ATELE T eos (absolute) 0.2 x10e3 /uL 0.0-0. 4 Not Available [facility] ([facility]) [address] [place], [address], 12/14/2022 11:15:25 12/14/19 23 12/14/2022 CBC WITH DIFFE RENTI AL/PL ATELE T baso (absolute) 0.0 x10e3 /uL 0.0-0. 2 Not Available [facility] ([facility]) [address] [place], [address], 12/14/2022 11:15:25 12/14/19 23 12/14/2022 CBC WITH DIFFE RENTI AL/PL ATELE T immature granulocytes 0 % notest ab. Not Available [facility] ([facility]) [address] [facility], [place], [address], 12/14/2022 11:15:25 12/14/19 23 12/14/2022 CBC WITH DIFFE RENTI AL/PL ATELE T immature grans (abs) 0.0 x10e3 /uL 0.0-0. 1 Not Available [facility] ([facility]) [address] [facility], [place], [address], 12/14/2022 11:15:25 12/14/19 23 12/14/2022 VITAM IN D, 25-HY DROXY vitamin D, 25-hydroxy 39.9 NG/mL 30.0-1 00.0 Vitam in D defic iency has been defin ed by the Insti tute of Medic ine and an Endoc rine Socie ty pract ice guide line as a level of serum 25-OH vitam in D less than 20 ng/mL (1,2) . The Endoc rine Socie ty went on to furth er defin e vitam in D insuf ficie ncy as a level betwe en 21 and 29 ng/mL (2). 1. IOM (Inst itute of Medic ine). 2009. Dieta ry refer ence intak es for calci um and D. Aspen pardo [place]: The Natio nal Acade [facility] Press . 2. Griselda thomas MF, Margaret pacheco [place], Nick off-F errar i JENKINS, et al. Evalu ation , treat ment, and preve ntion of vitam in D defic iency : an Endoc rine Socie ty clini meryl pract ice guide line. JCEM. 2010; 96(7) :1911 -30. Not Available [facility] ([facility]) [address] [facility], [place], [address], 12/14/2022 11:15:25 12/14/19 23 12/14/2022 COMP. METAB OLIC PANEL (14) glucose 84 mg/dL 70-99 Not Available [facility] ([facility]) [address] [place], [address], 12/14/2022 11:15:23 12/14/19 23 12/14/2022 COMP. METAB OLIC PANEL (14) BUN 18 mg/dL 8-27 Not Available [facility] ([facility]) [address] [place], [address], 12/14/2022 11:15:23 12/14/19 23 12/14/2022 COMP. METAB OLIC PANEL (14) creatinine 0.79 mg/dL 0.57-1 .00 Not Available [facility] ([facility]) [address] [facility], [place], [address], 12/14/2022 11:15:23 12/14/19 23 12/14/2022 COMP. METAB OLIC PANEL (14) eGFR 83 mL/mi n/1.7 3 >59 Not Available [facility] ([facility]) [address] [place], [address], 12/14/2022 11:15:23 12/14/19 23 12/14/2022 COMP. METAB OLIC PANEL (14) BUN/creatini ne ratio 23 12-28 Not Available [facility] ([facility]) [address] [place], [address], 12/14/2022 11:15:23 12/14/19 23 12/14/2022 COMP. METAB OLIC PANEL (14) sodium 139 mmol/ L 134-14 4 Not Available [facility] ([facility]) [address] [place], [address], 12/14/2022 11:15:23 12/14/19 23 12/14/2022 COMP. METAB OLIC PANEL (14) potassium - mmol/ L Test not perfo rmed. Speci men is hemol yzed. Unabl e to obtai n valid resul ts. Not Available [facility] ([facility]) [address] [place], [address], 12/14/2022 11:15:23 12/14/19 23 12/14/2022 COMP. METAB OLIC PANEL (14) chloride 103 mmol/ L 96-106 Not Available [facility] ([facility]) [address] [place], [address], 12/14/2022 11:15:23 12/14/19 23 12/14/2022 COMP. METAB OLIC PANEL (14) carbon dioxide, total 20 mmol/ L 20-29 Not Available [facility] ([facility]) [address] [place], [address], 12/14/2022 11:15:23 12/14/19 23 12/14/2022 COMP. METAB OLIC PANEL (14) calcium 9.8 mg/dL 8.7-10 .3 Not Available [facility] ([facility]) [address] [place], [address], 12/14/2022 11:15:23 12/14/19 23 12/14/2022 COMP. METAB OLIC PANEL (14) protein, total 7.2 g/dL 6.0-8. 5 Not Available [facility] ([facility]) [address] [facility] [place], [address], 12/14/2022 11:15:23 12/14/19 23 12/14/2022 COMP. METAB OLIC PANEL (14) albumin 4.6 g/dL 3.8-4. 8 Not Available [facility] ([facility]) [address] [place], [address], 12/14/2022 11:15:23 12/14/19 23 12/14/2022 COMP. METAB OLIC PANEL (14) globulin, total 2.6 g/dL 1.5-4. 5 Not Available [facility] ([place] [facility]) [address] [facility], [place], [address], 12/14/2022 11:15:23 12/14/19 23 12/14/2022 COMP. METAB OLIC PANEL (14) A/G ratio 1.8 1.2-2. 2 Not Available [facility] ([facility]) [address] [facility] [place], [address], 12/14/2022 11:15:23 12/14/19 23 12/14/2022 COMP. METAB OLIC PANEL (14) bilirubin, total 0.3 mg/dL 0.0-1. 2 Not Available [facility] ([facility]) [address] [facility] [place], [address], 12/14/2022 11:15:23 12/14/19 23 12/14/2022 COMP. METAB OLIC PANEL (14) alkaline phosphatase 95 IU/L 44-121 Not Available [facility]) [address] [facility] [place], [address], 12/14/2022 11:15:23 12/14/19 23 12/14/2022 COMP. METAB OLIC PANEL (14) AST (SGOT) 49 IU/L 0-40 above high normal Not Available [facility] ([facility]) [address] [facility] [place], [address], 12/14/2022 11:15:23 12/14/19 23 12/14/2022 COMP. METAB OLIC PANEL (14) ALT (SGPT) 39 IU/L 0-32 above high normal Not Available [facility] ([facility]) [address] [facility] [place], [address], 12/14/2022 11:15:23 12/14/19 23 12/14/2022 LIPID PANEL cholesterol, total 228 mg/dL 100-19 9 above high normal Not Available [facility] ([facility]) [address] [facility] [place], [address], 12/14/2022 11:15:22 12/14/19 23 12/14/2022 LIPID PANEL triglyceride s 76 mg/dL 0-149 Not Available [facility] ([facility]) [address] [place], [address], 12/14/2022 11:15:22 12/14/19 23 12/14/2022 LIPID PANEL HDL cholesterol 110 mg/dL >39 Not Available [facility]) [address] [place], [address], 12/14/2022 11:15:22 12/14/19 23 12/14/2022 LIPID PANEL VLDL cholesterol meryl 13 mg/dL 5-40 Not Available [facility] ([facility]) [address] [place], [address], 12/14/2022 11:15:22 12/14/19 23 12/14/2022 LIPID PANEL LDL chol calc ([facility]) 105 mg/dL 0-99 above high normal Not Available [facility] ([facility]) [address] [place], [address], 12/14/2022 11:15:22 04/07/20 23 04/08/2023 HEPAT IC FUNCT ION PANEL (7) protein, total 6.8 g/dL 6.0-8. 5 Not Available [facility] ([facility]) [address] [place], [address], 04/08/2023 08:27:17 04/07/20 23 04/08/2023 HEPAT IC FUNCT ION PANEL (7) albumin 4.5 g/dL 3.9-4. 9 Not Available [facility] ([facility]) [address] [place], [address], 04/08/2023 08:27:17 04/07/20 23 04/08/2023 HEPAT IC FUNCT ION PANEL (7) bilirubin, total 0.4 mg/dL 0.0-1. 2 Not Available [facility] ([facility]) [address] [place], [address], 04/08/2023 08:27:17 04/07/20 23 04/08/2023 HEPAT IC FUNCT ION PANEL (7) bilirubin, direct 0.12 mg/dL 0.00-0 .40 Not Available [facility] ([facility]) [address] [place], [address], 04/08/2023 08:27:17 04/07/20 23 04/08/2023 HEPAT IC FUNCT ION PANEL (7) alkaline phosphatase 92 IU/L 44-121 Not Available [facility]) [address] [place], [address], 04/08/2023 08:27:17 04/07/20 23 04/08/2023 HEPAT IC FUNCT ION PANEL (7) AST (SGOT) 27 IU/L 0-40 Not Available [facility] ([facility]) [address] [place], [address], 04/08/2023 08:27:17 04/07/20 23 04/08/2023 HEPAT IC FUNCT ION PANEL (7) ALT (SGPT) 22 IU/L 0-32 Not Available [facility] ([facility]) [address] [place], [address], 04/08/2023 08:27:17 11/10/19 24 11/11/2023 LIPID PANEL cholesterol, total 213 mg/dL 100-19 9 above high normal Not Available [facility] ([facility]) [address] [place], [address], 11/11/2023 03:08:36 11/10/19 24 11/11/2023 LIPID PANEL triglyceride s 55 mg/dL 0-149 Not Available [facility] ([facility]) [address] [facility] [place], [address], 11/11/2023 03:08:36 11/10/19 24 11/11/2023 LIPID PANEL HDL cholesterol 113 mg/dL >39 Not Available [facility]) [address] [place], [address], 11/11/2023 03:08:36 11/10/19 24 11/11/2023 LIPID PANEL VLDL cholesterol meryl 10 mg/dL 5-40 Not Available [facility] ([facility]) [address] [place], [address], 11/11/2023 03:08:36 11/10/19 24 11/11/2023 LIPID PANEL LDL chol calc ([facility]) 90 mg/dL 0-99 Not Available [facility]) [address] [place], [address], 11/11/2023 03:08:36 11/10/19 24 11/11/2023 COMP. METAB OLIC PANEL (14) glucose 87 mg/dL 70-99 Not Available [facility] ([facility]) [address] [place], [address], 11/11/2023 03:08:37 11/10/19 24 11/11/2023 COMP. METAB OLIC PANEL (14) BUN 13 mg/dL 8-27 Not Available [facility] ([facility]) [address] [place], [address], 11/11/2023 03:08:37 11/10/19 24 11/11/2023 COMP. METAB OLIC PANEL (14) creatinine 0.88 mg/dL 0.57-1 .00 Not Available [facility] ([facility]) [address] [place], [address], 11/11/2023 03:08:37 11/10/19 24 11/11/2023 COMP. METAB OLIC PANEL (14) eGFR 72 mL/mi n/1.7 3 >59 Not Available [facility] ([facility]) [address] [place], [address], 11/11/2023 03:08:37 11/10/19 24 11/11/2023 COMP. METAB OLIC PANEL (14) BUN/creatini ne ratio 15 12-28 Not Available [facility]) [address] [place], [address], 11/11/2023 03:08:37 11/10/19 24 11/11/2023 COMP. METAB OLIC PANEL (14) sodium 142 mmol/ L 134-14 4 Not Available [facility] ([facility]) [address] [place], [address], 11/11/2023 03:08:37 11/10/19 24 11/11/2023 COMP. METAB OLIC PANEL (14) potassium 4.8 mmol/ L 3.5-5. 2 Not Available [facility] ([facility]) [address] [place], [address], 11/11/2023 03:08:37 11/10/19 24 11/11/2023 COMP. METAB OLIC PANEL (14) chloride 104 mmol/ L 96-106 Not Available [facility] ([facility]) [address] [facility] [place], [address], 11/11/2023 03:08:37 11/10/19 24 11/11/2023 COMP. METAB OLIC PANEL (14) carbon dioxide, total 25 mmol/ L 20-29 Not Available [facility] ([facility]) [address] [facility] [place], [address], 11/11/2023 03:08:37 11/10/19 24 11/11/2023 COMP. METAB OLIC PANEL (14) calcium 9.8 mg/dL 8.7-10 .3 Not Available [facility] ([facility]) [address] [facility] [place], [address], 11/11/2023 03:08:37 11/10/19 24 11/11/2023 COMP. METAB OLIC PANEL (14) protein, total 6.7 g/dL 6.0-8. 5 Not Available [facility] ([facility]) [address] [place], [address], 11/11/2023 03:08:37 11/10/19 24 11/11/2023 COMP. METAB OLIC PANEL (14) albumin 4.2 g/dL 3.9-4. 9 Not Available [facility] ([facility]) [address], [place], [address], 11/11/2023 03:08:37 11/10/19 24 11/11/2023 COMP. METAB OLIC PANEL (14) globulin, total 2.5 g/dL 1.5-4. 5 Not Available [facility] ([facility]) [address] [place], [address], 11/11/2023 03:08:37 11/10/19 24 11/11/2023 COMP. METAB OLIC PANEL (14) A/G ratio 1.7 1.2-2. 2 Not Available [facility] ([facility]) [address] [place], [address], 11/11/2023 03:08:37 11/10/19 24 11/11/2023 COMP. METAB OLIC PANEL (14) bilirubin, total 0.3 mg/dL 0.0-1. 2 Not Available [facility] ([facility]) [address] [place], [address], 11/11/2023 03:08:37 11/10/19 24 11/11/2023 COMP. METAB OLIC PANEL (14) alkaline phosphatase 108 IU/L 44-121 Not Available [facility]) [address], [place], [address], 11/11/2023 03:08:37 11/10/19 24 11/11/2023 COMP. METAB OLIC PANEL (14) AST (SGOT) 28 IU/L 0-40 Not Available [facility] ([facility]) [address] [facility] [place], [address], 11/11/2023 03:08:37 11/10/19 24 11/11/2023 COMP. METAB OLIC PANEL (14) ALT (SGPT) 26 IU/L 0-32 Not Available [facility] ([facility]) [address] [facility], [place], [address], 11/11/2023 03:08:37 11/10/19 24 11/11/2023 TSH TSH 1.470 uIU/m L 0.450- 4.500 Not Available [facility] ([facility]) [address] [facility], [place], [address], 11/11/2023 03:08:38 11/10/19 24 11/11/2023 CBC WITH DIFFE RENTI AL/PL ATELE T WBC 6.2 x10e3 /uL 3.4-10 .8 Not Available [facility] ([facility]) [address] [facility], [place], [address], 11/11/2023 03:08:38 11/10/19 24 11/11/2023 CBC WITH DIFFE RENTI AL/PL ATELE T RBC 4.69 x10e6 /uL 3.77-5 .28 Not Available [facility] ([facility]) [address] [facility], [place], [address], 11/11/2023 03:08:38 11/10/19 24 11/11/2023 CBC WITH DIFFE RENTI AL/PL ATELE T hemoglobin 14.0 g/dL 11.1-1 5.9 Not Available [facility] ([facility]) [address] [facility], [place], [address], 11/11/2023 03:08:38 11/10/19 24 11/11/2023 CBC WITH DIFFE RENTI AL/PL ATELE T hematocrit 42.7 % 34.0-4 6.6 Not Available [facility] ([facility]) [address] [facility], [place], [address], 11/11/2023 03:08:38 11/10/19 24 11/11/2023 CBC WITH DIFFE RENTI AL/PL ATELE T MCV 91 fL 79-97 Not Available [facility] ([facility]) [address] [facility], [place], [address], 11/11/2023 03:08:38 11/10/19 24 11/11/2023 CBC WITH DIFFE RENTI AL/PL ATELE T MCH 29.9 pg 26.6-3 3.0 Not Available [facility] ([facility]) [address] [facility], [place], [address], 11/11/2023 03:08:38 11/10/19 24 11/11/2023 CBC WITH DIFFE RENTI AL/PL ATELE T MCHC 32.8 g/dL 31.5-3 5.7 Not Available [facility] ([facility]) [address] [facility], [place], [address], 11/11/2023 03:08:38 11/10/19 24 11/11/2023 CBC WITH DIFFE RENTI AL/PL ATELE T RDW 14.0 % 11.7-1 5.4 Not Available [facility] ([facility]) [address] [facility], [place], [address], 11/11/2023 03:08:38 11/10/19 24 11/11/2023 CBC WITH DIFFE RENTI AL/PL ATELE T platelets 212 x10e3 /uL 150-45 0 Not Available [facility] ([facility]) [address] [facility], [place], [address], 11/11/2023 03:08:38 11/10/19 24 11/11/2023 CBC WITH DIFFE RENTI AL/PL ATELE T neutrophils 59 % notest ab. Not Available [facility] ([facility]) [address] [facility], [place], [address], 11/11/2023 03:08:38 11/10/19 24 11/11/2023 CBC WITH DIFFE RENTI AL/PL ATELE T lymphs 32 % notest ab. Not Available [facility] ([facility]) [address] [facility], [place], [address], 11/11/2023 03:08:38 11/10/19 24 11/11/2023 CBC WITH DIFFE RENTI AL/PL ATELE T monocytes 7 % notest ab. Not Available [facility] ([facility]) [address] [facility], [place], [address], 11/11/2023 03:08:38 11/10/19 24 11/11/2023 CBC WITH DIFFE RENTI AL/PL ATELE T eos 1 % notest ab. Not Available [facility] ([facility]) [address] [facility], [place], [address], 11/11/2023 03:08:38 11/10/19 24 11/11/2023 CBC WITH DIFFE RENTI AL/PL ATELE T basos 1 % notest ab. Not Available [facility] ([facility]) [address] [facility], [place], [address], 11/11/2023 03:08:38 11/10/19 24 11/11/2023 CBC WITH DIFFE RENTI AL/PL ATELE T neutrophils (absolute) 3.7 x10e3 /uL 1.4-7. 0 Not Available [facility] ([facility]) [address] [place], [address], 11/11/2023 03:08:38 11/10/19 24 11/11/2023 CBC WITH DIFFE RENTI AL/PL ATELE T lymphs (absolute) 2.0 x10e3 /uL 0.7-3. 1 Not Available [facility] ([facility]) [address] [facility], [place], [address], 11/11/2023 03:08:38 11/10/19 24 11/11/2023 CBC WITH DIFFE RENTI AL/PL ATELE T monocytes(ab solute) 0.4 x10e3 /uL 0.1-0. 9 Not Available [facility] ([facility]) [address] [facility], [place], [address], 11/11/2023 03:08:38 11/10/19 24 11/11/2023 CBC WITH DIFFE RENTI AL/PL ATELE T eos (absolute) 0.1 x10e3 /uL 0.0-0. 4 Not Available [facility] ([facility]) [address] [facility], [place], [address], 11/11/2023 03:08:38 11/10/19 24 11/11/2023 CBC WITH DIFFE RENTI AL/PL ATELE T baso (absolute) 0.0 x10e3 /uL 0.0-0. 2 Not Available [facility] ([facility]) [address] [facility], [place], [address], 11/11/2023 03:08:38 11/10/19 24 11/11/2023 CBC WITH DIFFE RENTI AL/PL ATELE T immature granulocytes 0 % notest ab. Not Available [facility] ([facility]) [address] [facility], [place], [address], 11/11/2023 03:08:38 11/10/19 24 11/11/2023 CBC WITH DIFFE RENTI AL/PL ATELE T immature grans (abs) 0.0 x10e3 /uL 0.0-0. 1 Not Available [facility] ([facility]) [address] [facility], [place], [address], 11/11/2023 03:08:38 05/15/20 24 05/16/2024 ANTIN UCLEA R AB MULTI PLEX RFX 5 JAISON direct NEGATI VE negati ve Not Available [facility] ([facility]) [address], [place], [address], 05/16/2024 09:16:47 03/18/20 23 03/17/2023 XR, chest No observ ation record ed. [facility] [address], [place], [address], 03/22/2023 13:10:17 06/08/20 23 03/24/2023 US, doppl er echoc ardio gram No observ ation record ed. [email or web address] Not Available 2022 22:50:51 02/10/20 24 08/09/2023 MAMMO , scree oliver, digit al, bilat eral No observ ation record ed. [facility] [address], [place], [address], 02/11/2024 12:09:15 Result Notes None recorded. 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 2019 El Pineda MD Attn: Louis malone,[address] [facility], [place], [address], [place] [facility] 3 11:18:14 Psoriatic arthritis 542307859 Active 2020 El Pineda MD Attn: Louis g,[address] [facility], [place], [address], [place] [facility] 3 11:18:14 Obesity 773868716 Active 2023 Malaika more RN null, [place] - [facility] 4 13:01:26 Gastroesoph ageal reflux disease 151804787 Active El Pineda MD Attn: Louis malone,[address] [facility], [place], [address], [place] - [facility] 3 11:18:14 Seasonal allergy 526624764 Completed 08/31/2018 Tova Kenney MD Attn: Louis malone,[address] [facility], [place], [address], [place] [facility] 9 12:42:18 Depressive disorder 99034971 Active El Pineda MD Attn: Louis malone,[address] [facility], [place], [address], [place] [facility] 3 11:18:14 Sciatica 30316046 Completed 11/02/2022 El Pineda MD Attn: Louis malone,[address] [facility], [place], [address], [place] [facility] 3 11:18:22 Hip pain 97959465 Completed 11/02/2022 El Pineda MD Attn: Gauravjanet malone,[address] [facility], [place], [address], [place] [facility] 3 11:18:22 Insomnia 996215976 Active El Pineda MD Attn: Gauravjanet malone,[address] [facility], [place], [address],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 previously on vynase. Currently off and doing well. - Generalize d Anxiety Disorder: Stable on zoloft. Sparingly uses ativan. Last fill for 30 was 01/18/15 - usually lasts >1 year. - Insomnia: Last fill of ambien 30 tablets was 01/23/15, rx usually lasts 6-9 months. Has had issues recently and requests refill today. D/w pt need to make this last months. Adult [facility] th examination 023894233 Z00.00 - Last pap: 2013, no h/o dysplasia; f/u 5 years - Last mammogram: October 2014 negative, f/u annually - Last c/scope: 2007, f/u 10 years - Last TDap: 05/11/12 - Last Pneumovax: 05/11/12 - Flu shot today: 05/28/15 Neuropathic pain 3496862 09 M79.2 s/p surgery, still with neuropathi c symptoms. Taking gabapentin 300mg qday prn. D/w pt appropriat e dosing of gabapentin starting as qday dosing then increasing to BID and then TID as tolerates. Will refill meds when pt requires refill. Active or passive immunization 739651189 Z23 [id number] MD Juanito Quevedo e FP ([address]) [address] [facility] [address] 01/29/2016 09:01:36 01/29/2016 14:49:30 Screening for malignant neoplasm of breast 277080597 Z12.31 Generalize d anxiety disorder 42265481 F41.1 Insomnia 498718464 G47.0 0 Hypertensive disorder 38 633724 I10 Hyperlipidemia 75553114 E78.5 Neck swelling 416450068 R22.1 -6-8 weeks of left neck swelling without erythema or sign of infection -CT neck to evaluate for underlying mass Adhesive c apsulitis of left shoulder 0697648496 11629 M75.02 -Continue PT -Ortho following -NSAIDs prn Adult heal th examination 053182057 Z00.00 Last pap: 2013, no h/o dysplasia; f/u 5 years Last mammogram: October 2014 negative, f/u annually Last c/scope: 2007, f/u 10 years Last TDap: 05/11/12 Last Pneumovax: 05/11/12 Flu shot today: 05/28/15 [id number] MD Juanito Daniels e FP ([address]) [address] [facility] [address] 04/21/2016 14:26:48 04/22/2016 10:22:34 Active or passive immunization 397417461 Z23 [id number] MD Juanito Mcguire e FP ([address]) [address] [facility] [address] 04/29/2016 09:31:33 04/29/2016 17:31:56 Pain in thumb 434838532 M79.644 Ulnar collateral ligament injury? Eval for fracture pending. Upper resp iratory infection 03661913 J06.9 No additional evaluation needed. Most likely symptoms will continue to improve and I see no reason to recommend delay of planned procedure. If symptoms worsen or new symptoms should be reevaluate d for fitness fro procedure. Electrocar diogram abnormal 759216202 R94.31 Abnormalit y identified on EKG at [facility], performed as part of a research protocol. No hx/sx CAD or CAD equivalent . Has cardiac eval pending next week. 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 [id number] MD Viviana Quevedoina FP ([address]) [address] [place] [address] 07/26/2017 09:31:57 07/26/2017 11:33:49 Generalized anxiety disorder 43915209 F41.1 -Stable-Fa yuli stressors- Ativan sparingly and continue SSRI Insomnia 589990898 G47.0 0 Osteoarthritis 537654268 M19.90 -h/o hip pain and intermitte nt sciatica controlled with gabapentin and amitriptyl ine, meds refilled Gastroesop hageal reflux disease 732560174 K21.9 -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 Denies pain or urgency.Wi ll send for renal US to rule out stoneOTC pain medication s as neededEnco uraged to increased water intake [id number] MD Juanito Daniels FP ([address]) [address] [place] [address] 08/31/2018 12:19:54 09/01/2018 09:17:30 Acute sinusitis 13276921 J01.90 - given duration of sx, exam, will tx for sinusitis- discussed augmentin, advised to take w/ food, watch for abx associated diarrhea, can start probiotic empiricall y if desired- if no improvemen t, return for re-evaluat ion- continue other symptomati c measures PRN Elevated blood-pressure reading without diagnosis of hypertension 733320420 R03.0 - diastolic elevated at 94, recheck at f/u w/ dr. pineda; possibly related to cold/flu meds [id number] MD Juanito Quevedo e FP ([address]) [address] [place] [address], [place] [address] 09/15/2018 09:34:05 09/25/2018 08:54:04 Obesity 530324653 E66.9 -Weight loss, nutrition, and healthy eating reviewed Screening for malignant neoplasm of breast 356729822 Z12.31 Gynecologi c examination 53060078 Z01.419 -Pap collected- Mammogram ordered Osteoarthritis 943297475 M19.90 Gastroesop hageal reflux disease 272660072 K21.9 -Try to decrease PPI and wean off-Start ranitidine -Problem foods reviewed Generalize d anxiety disorder 58457734 F41.1 -Offered CBT-Contin ue SSRI Screening for malignant neoplasm of colon 006582431 Z12.11 [id number] Lakesha Hampton, GENI-C Juanito nuñez FP ([address]) [address] [place] [address] 02/21/2019 14:40:32 03/08/2019 14:12:22 Posterior rhinorrhea 17467691 R09.82 -start steroid nasal spray, do not suspect sinus infection at this time-suspe ct allergies, discussed allergen avoidance- f/u if no improvemen t in 5-7 days Blood gluc ose outside reference range 651912691 R73.09 -concerned for diabetes, A1C normal [id number] MD Juanito Quevedo FP ([address]) [address] [place] [address] 11/08/2019 14:41:30 11/08/2019 22:08:58 Generalized anxiety disorder 74272341 F41.1 -chronic, stable-rar e lorazepam use-contin ue SSRI Gastroesop hageal reflux disease 752295320 K21.9 -chronic, uncontroll ed-Increas e PPI back to 40mg-Use and common side effects reviewed Insomnia 489362338 G47.0 0 -chronic, unchanged Neuropathy 205585292 G62 .9 -Chronic, stable-Con tinue gabapentin Adult heal th examination 530887522 Z00.00 Hyperglycemia 67546732 R 73.9 Screening mammography 24 259819 Z12.31 Daytime somnolence 21240 37956 00 R40.0 [id number] MD Juanito Quevedo FP ([address]) [address] [place] [address] 04/21/2020 11:29:19 04/21/2020 13:58:37 Gynecologic examination 82194307 Z01.419 -Pap collected- Mammogram ordered-Ob esity reviewed as well as exercise, weight loss, and healthy diet-f/u annual and as needed Screening mammography 24 136600 Z12.31 Peripheral nerve disease 951408380 G64 -Idiopathi c, worsening- On Elavil and gabapentin -Neurology referral for futher evaluation Obesity 583934604 E66.9 -Weight loss, nutrition, and healthy eating reviewed [id number] MD Juanito Quevedo FP ([address]) [address] [place] [address] 06/08/2021 14:18:18 06/09/2021 11:13:14 Screening mammography 97586226 Z12.31 Hyperlipidemia 33209931 E78.5 -Chronic, recheck lipids Dry eyes 204587650 H04.1 29 -Acute, worsening- Neg for Sjogrens antibody-R ecommended eye doctor evaluation Obesity 158158741 E66.9 -Weight loss, nutrition, and healthy eating reviewed [id number] Lakesha Hampton, MANAGER MUSIC-C Juanito BERGMAN ([address]) [address] [place] [address] 09/29/2021 15:40:20 10/01/2021 08:51:27 Right upper quadrant pain 857037926 R10.11 -check CMP-previo us cholecyste ctomy-revi ewed diet Constipation 03201088 K5 9.00 -making good diet changes-ca n add fiber supplement or miralax-f/ u if worsening Obesity 411453409 E66.9 [id number] MD Juanito Quevedo FP ([address]) [address] [place] [address] 05/11/2022 10:14:11 05/25/2022 13:21:10 Postmenopausal state 16667484 Z78.0 Constipation 31437436 K5 9.00 -Chronic, uncontroll ed-Miralax daily, Dulcolax suppositor y prn, Metamucil, regular exercise-C -scope done 2018-f/ annual and as needed Obesity 580635366 E66.9 -Weight loss, nutrition, and healthy eating reviewed Stress 39165654 Z73.3 -Chronic, stable-See ing psychiatry and doing CBT [id number] MD Juanito Quevedo FP ([address]) [address] [place] [address] 11/02/2022 10:46:23 11/03/2022 14:14:24 Acute sinusitis 45833413 J01.90 Obesity 503372093 E66.9 -Weight loss, nutrition, and healthy eating reviewed-R equesting Ozempic for weight loss which is back-order ed-Discuss ed use, risks, benefits, alternativ es, and common side effects of Trulicity- f/u 1 month BP and new med Increased blood pressure 25883584 R03.0 -Elevated, borderline -Recheck 1 month [id number] MD Juanito Quevedo FP ([address]) [address] [place] [address] 12/10/2022 14:54:47 12/14/2022 14:52:47 Hyperlipidemia 99576850 E78.5 Obesity 953212389 E66.9 -Weight loss, nutrition, and healthy eating reviewed-R equesting Ozempic for weight loss which is back-order ed-Discuss ed use, risks, benefits, alternativ es, and common side effects of Victoza-f/ u 3 months Fatigue 45921804 R53.83 Word findi ng difficulty 853297466 F80.89 -SLUMS score OK-Trouble word finding and also with concentrat ion-Has intrusive thoughts that impact her concentrat ion-Reassu red, suspect secondary cause most likely [id number] MD Juanito Quevedo FP ([address]) [address] [place] [address] 05/16/2023 09:48:15 05/18/2023 15:58:52 Obesity 896677225 E66.9 -Weight loss, nutrition, and healthy eating reviewed-R estart Victoza after surgery-Di scussed use, risks, benefits, alternativ es, and common side effects of Victoza-f/ u 3 months Hyperlipidemia 41901935 E78.5 -Discussed risk of very high HDL-Discus sed risks and benefits of increasing atorvastat in-Will monitor lipids annually for now [id number] MD Juanito Quevedo FP ([address]) [address] [place] [address] 11/10/2023 09:46:37 11/11/2023 15:19:28 Hyperlipidemia 97089640 E78.5 -Check lipids Obesity 874913833 E66.9 -Weight loss, nutrition, and healthy eating reviewed-R estart Victoza after surgery-Di scussed use, risks, benefits, alternativ es, and common side effects of Victoza-f/ u 6 months Psoriatic arthritis 1563 15759 L40.50 H04.123 -Chronic, uncontroll ed-f/u with Rheumatolo gist [id number] MD Juanito Quevedo e FP ([address]) [address] [place] [address] 05/15/2024 10:01:44 05/16/2024 09:39:37 Psoriatic arthritis 099656895 L40.50 H04.123 -Chronic, stable-Deanna ck lab panel for possible Sjogrens per Rhematolog y-f/u with Rheumatolo gist Screening mammography 24 138571 Z12.31 Dry skin dermatitis 2600 56446 L85.3 -Chronic, worse-Tria mcinolone cream, use and common side effects reviewed Obesity 465489760 E66.9 -Weight loss, nutrition, and healthy eating reviewed-[facility]-Wi ll see if GLP-1 is covered for weight loss per her insurance (states [place] needed) Foot callus 544581659 L8 4 -Chronic, painful in one foot-Podia try evaluation Health Concerns Section Related Observation LastModified by Organization Detai ls LastModified Time None Recorded Concern Status LastModified by Organization Details LastModified Time None Recorded Advance Directives Directive None Recorded Payers Encounter Date Sequence Insurance Name Policy Number Policy Gonzalez Covered Member ID Gonzalez Member ID Guarantor Name 11/02/2022 1 [facility] [id number] Alvaro Herring [id number] Roseann Nevaeh 12/10/2022 1 [facility] [id number] Alvaro Herring [id number] Roseann Nevaeh 05/16/2023 1 [facility] [id number] Alvaro Herring [id number] Roseann Nevaeh 11/10/2023 1 [facility] [id number] Alvaro Herring [id number] Roseann Nevaeh 05/15/2024 1 [facility] [id number] Alvaro Herring [id number] Roseann Nevaeh Notes Date Note Type Note Provider Name and Address Organization Details Recorded Time 11/02/2022 text/html Roseann has 5 day s of sinus congestion, headaches, cough, sore throat, fatigue, malaise, and some dyspnea. No fever, abdominal pain, or vomiting. Some sick contacts. She is also interested in GLP-1 for weight loss because she has a friend who has had success. El Pineda MD Attn: Accounting[address] [place], [address], [facility] 11/02/2022 11:26:36 12/10/2022 text/html 67yo Ofe preetijanet malone for routine visit. She comes in with concerns about worsening memory. Cant remember words during conversations. Hears music constantly (like a song stuck in her head permanently). Currently seeing a psychiatrist as well, recent medications She has a lot of life stress with her son and his psychiatric issues. Her insurance did not cover the Trulicity for weight loss and she is interested in using 340b option. She has been having continued intermittent constipation. She has chronic R sciatica pain that is currently worse- seeing specialist and considering treatment options. El Pineda MD Attn: Accounting, [address] [place], [place], [address] [place] [address], [facility] 12/12/2022 23:46:36 05/16/2023 text/html Roseann is here f or f/u. She has been off the Victoza since she had the syncopal episode. 2 weeks ago she had a cardiac cath that looked good. She would like to restart the medication for weight loss. She has scheduled lumbar spine surgery for severe spinal stenosis. She has her mammogram scheduled. El Pineda MD Attn: Accounting[address] [place], [address], [facility] 05/16/2023 13:37:16 11/10/2023 text/html Roseann is here f or f/u. She has been off the Victoza because she has had a hard time getting it from the pharmacy. Interested in restarting. She is having more generalized aches and pains in muscles and joints and has f/u with her Subscription Clerk for her psoriatic arthritis. She has started playing [employer] ball. Her mood is stable. Her weight is stable. She has intermittent headaches and fatigue. She is not sure which medications she is taking for insomnia, but she does not take lorazepam often. El Pineda MD Attn: Accounting, [address] [facility], [place], [address], [facility] 11/10/2023 13:21:56 05/15/2024 text/html Roseann is here f or her annual visit. She is doing well, but has some increased joint pains from her psoriatic arthritis. She is also having incredibly dry eyes and she has lost some eye lashes on her outer right eye. She is also having right foot pain, worse with weight bearing, plantar, lateral pain. She is also interested in restarting a GLP-1 for weight loss. She had some GI symptoms before and stopped it, but it was working for weight loss. She has also had some low grade fevers over the past few months- not over 100, no other symptoms. El Pineda MD Attn: Accounting[address] [place], [address], [facility] 05/15/2024 13:41:43 OBGyn Episode No OBEpisode recorded.
--- OUTSIDE RECORDS SUMMARY | 2024-10-18 07:36 | XMS_ITS | Encounter Summary ---
Author Organization [facility] Address [address] [place] [address] Care Team Providers Care Aemt Name Role Phone Rachel Pineda MD Primary Care Provider [phone] Asif Conrad MD Unavailable Encounter Details Date Type Department Care Team (Latest Contact Info) Description 05/16/2018 Abstract [facility] Yosef Ramírez MD Social History Tobacco Use Types Packs/Day Years Used Date Smoking Tobacco: Former Smokeless Tobacco: Never Alcohol Use Standard Drinks/Week Comments Yes 0 (1 standard drink = 0.6 oz pur e alcohol) Comments Unknown Sex and Gender Information Value Date Recorded Sex Assigned at Not on file Legal Sex Female 12:15 AM CDT Gender Identity Not on file Sexual Orientation Not on file documented as of this encounter Plan of Treatment Not on file documented as of this encounter Visit Diagnoses Not on filedocumented in this encounter Care Teams Aemt Relationship Specialty Start Date End Date Rachel Pineda MD [address] [facility] [address] [place] [address] PCP - General FAMILY PRACTICE 12/10/15 Asif Conrad MD [address] [facility] [address] [place] [address] [place] Supersonic Engineer CARDIOVASCULAR DISEASE 12/10/15 documented as of this encounter
--- OUTSIDE RECORDS SUMMARY | 2024-10-18 07:36 | XMS_ITS | CONTINUITY OF CARE DOCUMENT ---
Author Name odell bain Address Unknown Organization [facility] Address [address] [place] [address] Phone [phone] Care Team Providers Care Personal Banking Assistant Name Role Phone Olvin Orellana MD Unavailable [phone] MITA SIBLEY DO Unavailable MITA SIBLEY DO Unavailable [phone] PROBLEMS Condition Status Date Provider Notes GERD active Olvin Orellana MD Hyperlipidemia active Olvin Orellana MD Anxiety active Olvin Orellana MD Psoriatic arthritis active Olvin Saldana D Syncope active Olvin Orellana MD Abnormal EKG active Olvin Orellana MD Abnormal nuclear stress test active Lesa Orellana MD ENCOUNTERS Date Type Provider Location Encounter Diag nosis 5 - 6 In-person encounter Office Visit Olvin Orellana MD [place] [facility] 7 - 7 In-person encounter Office Visit Olvin Orellana MD [place] [facility] Abnormal nuclear stress test 2 - 5 In-person encounter Office Visit Olvin Orellana MD [facility] 2 - 2 In-person encounter Office Visit Olvin Orellana MD [facility] GERDHyperlipidemiaAnxietyPsoriatic arthritisSyncopeAbnormal EKG VITAL SIGNS Date Observation Value Provider Body Mass Index (Ratio) 32.41 kg/m2 Dora Orellana MD blood pressure, diastolic 75 mm[Hg] Li nkLogic blood pressure, systolic 111 mm[Hg] Awilda kLogic blood pressure, cuff size regular Ja rret blood pressure, diastolic 75 mm[Hg] Ja et blood pressure, systolic 111 mm[Hg] [facility] pulse rate 59 /min Jose Guadalupe y respiratory rate E&M 12 /min [facility] oxygen saturation, oximetry 96 % [facility] weight E&M 183 [lb_av] [facility] y height E&M 63 [in_i] [facility] y Body Mass Index (Ratio) 32.94 kg/m2 Dora Orellana MD blood pressure, diastolic 70 mm[Hg] tr Bhagat blood pressure, systolic 112 mm[Hg] She servando Bhagat respiratory rate E&M 18 /min Theresa Bhagat pulse rate 68 /min Theresa Bhagat oxygen saturation, oximetry 94 % Theresa Bhagat blood pressure, cuff size regular tr Bhagat weight E&M 186 [lb_av] Theresa Bhagat height E&M 63 [in_i] Theresa Bhagat Body Mass Index (Ratio) 31.70 kg/m2 Dora Orellana MD blood pressure, cuff size regular Ke rri Anitha blood pressure, diastolic 90 mm[Hg] Ke rri Gruenenfclayton blood pressure, systolic 142 mm[Hg] Viktoria ri Anitha oxygen saturation, oximetry 98 % Karli Grueprabha respiratory rate E&M 12 /min Karli lei pulse rate 75 /min Karli Coyle lder weight E&M 179 [lb_av] Karli Coyle lder height E&M 63 [in_i] Karli Coyle lder ALLERGIES No Known Drug Allergies RESULTS Date Observation Value Provider Reference Range Interpretation Location lipoprotein, beta, serum, point, quantitative, calculated 110 mg/dL [facility] 0-99 High HDL cholesterol, serum 109 mg/dL [facility] >39 triglyceride, serum, random 73 mg/dL [facility] 0-149 cholesterol, serum 231 mg/dL [facility] 100-199 High HISTORY OF MEDICATION USE Medication Status Instructions Dates Provider Indications Com ments pregabalin unspecified unspecified active Jose Guadalupe trazodone 50 mg tablet active Jose Guadalupe tramadol 50 mg tablet active Jose Guadalupe dextroamphetamine-a mphetamine 10 mg tablet active Jose Guadalupe meloxicam 15 mg tablet active Jose Guadalupe Enbrel Mini 50 mg/mL (1 mL) cartridge active Karli Anitha zolpidem 5 mg tablet active Karli Anitha omeprazole 40 mg capsule,delayed release(DR/EC) active Karli Anitha sertraline 100 mg tablet active Karli Anitha atorvastatin 10 mg tablet active Karli Anitha SOCIAL HISTORY Date Observation Value Provider social history reviewed E&M revi ewed - no changes required Olvin Orellana MD number of grandchildren Olvin Orellana MD social history reviewed E&M revi ewed - no changes required Olvin Orellana MD social history reviewed E&M revi ewed - no changes required Olvin Orellana MD social history reviewed E&M revi ewed - no changes required Olvin Orellana MD INSURANCE PROVIDERS Payer name Policy type / Coverage type Bola red libertarian ID [facility] [id number] Other [id number] ADVANCE DIRECTIVES Name Date DISCUSSED - NO DECISION MADE TREATMENT PLAN Date Name Performer [id number],C,H er updated medication list for this problem includes: Omeprazole 40 Mg Capsule,delayed Release(dr/ec) (Omeprazole) Olvin Orellana MD [id number],C,EKG in SR tod ay Olvin Orellana MD [id number],C,S he has hx of panic attacks for last 40 years. During panic attacks she experiences chest tightness, palpitations, and headaches. She states they come and go, sometimes she will go years without having one and sometimes she will experience multiple within 24 hours. N o recurrence since last visit Olvin Orellana MD [id number],C,S tress reg showed abnormal perfusion imaging in the mid inferoseptal region with a mild perfusion defect, which is medium in size and and appears fixed, with some reversibility. 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 Olvin Orellana MD [id number],C,C ontinues on atorvastatin 10mg. Last LDL is 105. Aim for LDL less than 70 Olvin Orellana MD [id number],C,N o recurrence. S tress reg showed abnormal perfusion imaging in the mid inferoseptal region with a mild perfusion defect, which is medium in size and and appears fixed, with some reversibility. 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 Olvin Orellana MD [id number],C, S he has hx of panic attacks for last 40 years. During panic attacks she experiences chest tightness, palpitations, and headaches. She states they come and go, sometimes she will go years without having one and sometimes she will experience multiple within 24 hours. Olvin Orellana MD [id number],C, C ontinues on Enbrel. Olvin Orellana MD [id number],S, S tress reg showed abnormal perfusion imaging in the mid inferoseptal region with a mild perfusion defect, which is medium in size and and appears fixed, with some reversibility. The patient has agreed to undergo a cardiac cath. Will arrange. I recommended she hold off on going for walks until we perform the cath. The risks and benefits of the procedure, including but not limited the risk of heart attack, , stroke, bleeding, kidney failure, and loss of limb as well as the alternative of continued medical therapy, stress testing or bypass surgery were discussed with the patient and any present family members and the patient wishes to proceed with cardiac cath and stenting. The patient and family had opportunity to discuss this with us. Written material including informed consent was given out. Olvin Orellana MD [id number],S, N o recurrence. Stress reg showed abnormal perfusion imaging in the mid inferoseptal region with a mild perfusion defect, which is medium in size and and appears fixed, with some reversibility. Olvin Orellana MD [id number],S, C ontinues on atorvastatin 10mg. LDL is 105 Olvin Orellana MD [id number],C,N o recurrence. Stress reg showed abnormal perfusion imaging in the mid inferoseptal region with a mild perfusion defect, which is medium in size and and appears fixed, with some reversibility. She was planning to undergo back surgery on 04/05/2023 but will likely postpone. Discussed cardiac cath. She plans to discuss with and come to the [place] [facility] on Tuesday. Olvin Orellana MD [id number],S, Olvin reynolds MD [id number],C, H er updated medication list for this problem includes: Omeprazole 40 Mg Capsule,delayed Release(dr/ec) (Omeprazole) Olvin Orellana MD [id number],C,C ontinues on atorvastatin 10mg. LDL is 105 Olvin Orellana MD [id number],C,S tress reg showed abnormal perfusion imaging in the mid inferoseptal region with a mild perfusion defect, which is medium in size and and appears fixed, with some reversibility. She was planning to undergo back surgery on 04/05/2023 but will likely postpone. Discussed cardiac cath. She plans to discuss with and come to the [place] [facility] on Tuesday. Olvin Orellana MD [id number],C,S he has hx of panic attacks for last 40 years. During panic attacks she experiences chest tightness, palpitations, and headaches. She states they come and go, sometimes she will go years without having one and sometimes she will experience multiple within 24 hours. Olvin Orellana MD [id number],C,S he is planned to undergo back surgery on 04/05/2023 and preop eval showed abnormal EKG. She had an episode of syncope 1 month ago. She stated she felt dizzy, vomited, and lost conciousness for 1 minute. 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 She has family hx of cardiomyopathy. We will arrange for ECHO and reg stress test for risk stratification prior to surgery. Olvin Orellana MD [id number],C, H er updated medication list for this problem includes: Omeprazole 40 Mg Capsule,delayed Release(dr/ec) (Omeprazole) Olvin Orellana MD [id number],C,C ontinues on atorvastatin 10mg. LDL is 105 Olvin Orellana MD Cardiology:Her updat ed medication list for this problem includes: Omeprazole 40 Mg Capsule,delayed Release(dr/ec) (Omeprazole) Olvin Orellana MD Cardiology:EKG in SR today Mitch Orellana MD Cardiology:She has h x of panic attacks for last 40 years. During panic attacks she experiences chest tightness, palpitations, and headaches. She states they come and go, sometimes she will go years without having one and sometimes she will experience multiple within 24 hours. N o recurrence since last visit Olvin Orellana MD Cardiology:Stress re g showed abnormal perfusion imaging in the mid inferoseptal region with a mild perfusion defect, which is medium in size and and appears fixed, with some reversibility. 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 Olvin Orellana MD Cardiology:Continues on atorvastatin 10mg. Last LDL is 105. Aim for LDL less than 70 Olvin Orellana MD Cardiology:No recurr ence. S tress reg showed abnormal perfusion imaging in the mid inferoseptal region with a mild perfusion defect, which is medium in size and and appears fixed, with some reversibility. 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 Olvin Orellana MD Cardiology: S he has hx of panic attacks for last 40 years. During panic attacks she experiences chest tightness, palpitations, and headaches. She states they come and go, sometimes she will go years without having one and sometimes she will experience multiple within 24 hours. Olvin Orellana MD Cardiology: C ontinues on Enbrel. Olvin Orellana MD Cardiology: S tress reg showed abnormal perfusion imaging in the mid inferoseptal region with a mild perfusion defect, which is medium in size and and appears fixed, with some reversibility. The patient has agreed to undergo a cardiac cath. Will arrange. I recommended she hold off on going for walks until we perform the cath. The risks and benefits of the procedure, including but not limited the risk of heart attack, , stroke, bleeding, kidney failure, and loss of limb as well as the alternative of continued medical therapy, stress testing or bypass surgery were discussed with the patient and any present family members and the patient wishes to proceed with cardiac cath and stenting. The patient and family had opportunity to discuss this with us. Written material including informed consent was given out. Olvin Orellana MD Cardiology: N o recurrence. Stress reg showed abnormal perfusion imaging in the mid inferoseptal region with a mild perfusion defect, which is medium in size and and appears fixed, with some reversibility. Olvin Orellana MD Cardiology: C ontinues on atorvastatin 10mg. LDL is 105 Olvin Orellana MD Cardiology:No recurr ence. Stress reg showed abnormal perfusion imaging in the mid inferoseptal region with a mild perfusion defect, which is medium in size and and appears fixed, with some reversibility. She was planning to undergo back surgery on 04/05/2023 but will likely postpone. Discussed cardiac cath. She plans to discuss with and come to the [place] [facility] on Tuesday. Olvin Orellana MD Cardiology Olvin Mchugh Cardiology: H er updated medication list for this problem includes: Omeprazole 40 Mg Capsule,delayed Release(dr/ec) (Omeprazole) Olvin Orellana MD Cardiology:Continues on atorvastatin 10mg. LDL is 105 Olvin Orellana MD Cardiology:Stress re g showed abnormal perfusion imaging in the mid inferoseptal region with a mild perfusion defect, which is medium in size and and appears fixed, with some reversibility. She was planning to undergo back surgery on 04/05/2023 but will likely postpone. Discussed cardiac cath. She plans to discuss with and come to the [place] [facility] on Tuesday. Olvin Orellana MD Cardiology:She has h x of panic attacks for last 40 years. During panic attacks she experiences chest tightness, palpitations, and headaches. She states they come and go, sometimes she will go years without having one and sometimes she will experience multiple within 24 hours. Olvin Orellana MD Cardiology:She is pl anned to undergo back surgery on 04/05/2023 and preop eval showed abnormal EKG. She had an episode of syncope 1 month ago. She stated she felt dizzy, vomited, and lost conciousness for 1 minute. 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 She has family hx of cardiomyopathy. We will arrange for ECHO and reg stress test for risk stratification prior to surgery. Olvin Orellana MD Cardiology: H er updated medication list for this problem includes: Omeprazole 40 Mg Capsule,delayed Release(dr/ec) (Omeprazole) Olvin Orellana MD Cardiology:Continues on atorvastatin 10mg. LDL is 105 Olvin Orellana MD Date Name PROTHROMBIN TIME WIT H INR LIPID PANEL CBC (INCLUDES DIFF/P LT) BASIC METABOLIC PANE L W/EGFR Stress Regadenoson Complete Echo HISTORY OF PROCEDURES Procedure Date Procedure Name Provider Procedure Notes S tatus EKG Olvin Orellana MD complet ed EKG Olvin Orellana MD complet ed EKG Olvin Orellana MD complet ed
--- OUTSIDE RECORDS SUMMARY | 2024-10-18 07:36 | XMS_ITS | Encounter Summary ---
Author Organization [facility] Address [address] [place] [address] Care Team Providers Care Crime Specialist Name Role Phone Rachel Pineda MD Primary Care Provider [phone] Asif Conrad MD Unavailable [phone] Encounter Details Date Type Department Care Team (Late st Contact Info) Description 05/05/2016 Abstract [facility] AT [address] [id number] Moon Chong [place] Social History Tobacco Use Types Packs/Day Years [...] on file documented as of this encounter Procedures Procedure Name Priority Date/Time Associated Diagnosis Comments PROTIME (OUTSIDE LAB) Routine 03/03/2016 CBC (OUTSIDE LAB) Routine 03/03/2016 COMPREHENSIVE METABOLIC PANEL Routine 03/03/2016 LIPID PANEL Routine 03/03/2016 documented in this encounter Results * CBC (OUTSIDE LAB) (03/03/2016) WBC 7.0 HGB 12.6 HCT 36.4 PLT 190 03/03/2016 us Doc [facility] Abstract LAB-OUTSIDE/ABSTRACTED Final Result * COMPREHENSIVE METABOLIC PANEL (03/03/2016) SODIUM S/P/B 140 POTASSIUM S/P/B 4.2 CO2 26 CHLORIDE S/P/B 100 GLUCOSE 78 CALCIUM S/P/B 9.5 BUN 13 CREATININE S/P/B 0.79 ALKALINE PHOSPHATASE S/P/B 95 ALT 18 AST 20 BILIRUBIN TOTAL S/P/B 0.38 ALBUMIN S/P/B 3.8 3.5 - 5.0 TOTAL PROTEIN S/P/B 6.4 03/03/2016 us Doc [facility] Abstract LABORATORY Final Result * LIPID PANEL (03/03/2016) CHOLESTEROL 205 HDL 81 TRIGLYCERIDES 62 LDL (CALCULATED) 112 03/03/2016 us Doc [facility] Abstract LABORATORY Final Result * PROTIME (OUTSIDE LAB) (03/03/2016) PROTIME 10.4 INR 1.0 03/03/2016 us Doc [facility] Abstract LAB-OUTSIDE/ABSTRACTED Final Result documented in this encounter Visit Diagnoses Not on filedocumented in this encounter Care Teams Crime Specialist Relationship Specialty Start Date End Date Rachel Pineda MD [address] [place] [address] PCP - General FAMILY PRACTICE 12/10/15 Asif Conrad MD [address] [place] [address] [place] Sap Administrator CARDIOVASCULAR DISEASE 12/10/15 documented as of this encounter
--- OUTSIDE RECORDS SUMMARY | 2024-10-18 07:36 | XMS_ITS | Continuity of Care Document ---
Author Organization [facility] Address [address] [place] [address] [address] [place] [address] Phone Care Team Providers Care Civil Designer Name Role Phone Garrison OD, Isacc Unavailable Unavailable Advance Directives Directive Yes / No Effective Date File Name No Information Encounters Encounter Description Practice Location Reason(s) For Visit Diagnoses Date Provider Providers Copied on Encounter [facility], [address] [place], [place], [id number], [place] tel:[phone] [facility] No Information Mar-3 0-200 0 Garrison OD Isacc. [address], [place], [address], [place]. tel:[phone] Family History Family Member Type Diagnosis Age At Onset No Information Payers Payer name Insurance type Covered alliance party ID Authoriza tion(s) No Information Social History Type Description Quantity Date Captured Comments Sex Female Smoking Status No Information Chief Complaint And Reason For Visit No Information Reason For Referral Reason For Referral No Information History Of Present Illness Encounter Date Complaint History Of Prese nt Illness No Information Functional Status Date Functional Assessmen t No Information Instructions Date Instruction Additional Infor mation No Information Assessments Type Assessment Date No Information Patient Care Teams Name Effective Dates (start - stop) Status Members No Information
--- OUTSIDE RECORDS SUMMARY | 2024-10-18 07:36 | XMS_ITS | Clinical Summary ---
Author Organization [facility] Address [address] [place] [address] Care Team Providers Care Senior Web Analyst Name Role Phone Rachel Pineda MD Primary Care Provider [phone] Asif Conrad MD Unavailable [phone] Allergies No known active allergies Medications amitriptyline 50 MG tablet Take 50 mg by mouth. Take 1 tablet daily 08/17/2012 Active sertraline (ZOLOFT) 100 MG tablet Take 1 tablet daily Active gabapentin 400 MG capsule Take 800 mg by mouth nightly. 05/04/2016 Active omeprazole 40 MG capsule Take 40 mg by mouth daily. Active lorazepam 0.5 MG tablet Take 0.5 mg by mouth nightly as needed for Anxiety. Active zolpidem 5 MG tablet Take 5 mg by mouth nightly as needed for Sleep. Active Active Problems Problem Noted Date Diagnosed Date Pre-op evaluation 05/04/2016 Overview (05/04/2016): Prior to shoulder athroscopic surgery Essential hypertension 05/04/2016 Obesity (BMI 30.0-34.9) 05/04/2016 Former smoker 05/04/2016 Abnormal EKG 05/04/2016 Overview (05/04/2016): LAE Family History Medical History Relation Comments Alcohol Abuse Father Lung Cancer Father CARDIOMYOPATHY Mother Depression Mother Relation Status Comments Father Mother Social History Tobacco Use Types Packs/Day Years Used Date Smoking Tobacco: Former Smokeless Tobacco: Never Comments:QUIT AT AGE 36 Alcohol Use Standard Drinks/Week Comments Yes 0 (1 standard drink = 0.6 oz pur e alcohol) OCCASIONALLY Comments No Sex and Gender Information Value Date Recorded Sex Assigned at Not on file Legal Sex Female 12:15 AM CDT Gender Identity Not on file Sexual Orientation Not on file Last Filed Vital Signs Vital Sign Reading Time Taken Comments Blood Pressure 104/79 10/04/2018 8:20 AM CDT Pulse 62 10/04/2018 8:20 AM CDT Temperature 36.7 C (98.1 F) 10/04/2018 8:00 AM CDT Respiratory Rate 18 10/04/2018 8:20 AM CDT Oxygen Saturation 100% 10/04/2018 8:20 AM CDT Inhaled Oxygen Concentration - - Weight 90.7 kg (200 lb) 10/04/2018 6:34 AM CDT Height 160 cm (5' 3 ) 10/04/2018 6:34 AM CDT Body Mass Index 35.43 10/04/2018 6:34 AM CDT Plan of Treatment Health Maintenance Due Date Last Done Comments Hepatitis C 1975 DTaP, Tdap and Td Vaccines ( 1 - Tdap) 1976 Mammogram Screening 1997 Zoster Vaccines (1 of 2) 2007 Dexa Scan (General) 2022 Pneumococcal Vaccine: 65+ Ye ars (1 of 1 - PCV) 2022 COVID-19 Vaccine ( - 2023-2 5 season) 2024 Colorectal Cancer Screening Colonoscopy (10 Years) 10/04/2028 10/04/2018 RSV Immunization or 60+ Years (1 - 1-dose 75+ series) 2032 Meningococcal B Vaccine Aged Out No l onger eligible based on patient's age to complete this topic Meningococcal Vaccine Aged Out No jason joel eligible based on patient's age to complete this topic RSV Immunizations Under 20 Months Aged Out No longer eligible based on patient's age to complete this topic Procedures Procedure Name Priority Date/Time Associated Diagnosis Comments COLONOSCOPY Routine 10/04/2018 6:52 AM CDT from Last 3 Months or Most Recently Relevant to Health Maintenance Insurance Member Subscriber Plan / Payer (Ef fective 2017-Present) Name:Carlito Herringkie Blair Relation to Subscriber:Spouse Name:ELLA HERRING Date of :1960 (Home) Address: [address] [place] [address] Payer ID:[id number] (NAIC) Type:Not on file Address: [place] [phone] Member Subscriber Plan / Payer (Ef fective 2017-Present) Name:Carlito Herringranjana Pinto Relation to Subscriber:Spouse Name:ELLA HERRING Date of :1960 (Home) Address: [address] [place] [address] Payer ID:[id number] (NAIC) Type:Not on file Address: [place] [phone] Care Teams Senior Web Analyst Relationship Specialty Start Date End Date Rachel Pineda MD [address] [place] [address] PCP - General FAMILY PRACTICE 12/10/15 Asif Conrad MD [address] [place] [address] [place] Rpg Developer CARDIOVASCULAR DISEASE 12/10/15
--- OUTSIDE RECORDS SUMMARY | 2024-10-18 07:37 | XMS_ITS | Referral Summary ---
Author Organization [facility] [address] [place] Address [address] [place] [address] Care Team Providers Care Behaviorist Name Role Phone Rachel Pineda MD Primary Care Provider [phone] Rachel Pineda MD Unavailable Encounters Date Type Department Care Team Description 09/20/2024 Telephone [facility] Department of Psychiatry [address] [facility] [address] [place] [phone] Kate Howe 09/17/2024 11:20 AM CDT Office Visit [facility] ([facility] ENT [address] [facility] 11th [place] [address] [place] [phone] Liang Bruno MD Sensorineural hearing loss (SNHL) of both ears (Primary Dx); Auditory hallucination 09/10/2024 Orders Only [facility] Ophthalmology [address] [place] [address] Outpatient Health [address] [place] [phone] Mendez Welsh MD PhD 09/10/2024 9:45 AM PRESALES ENGINEER Office Visit [facility] [address] [place] [phone] Mendez Welsh MD PhD Ocular rosacea (Primary Dx); Ocular pain, bilateral; Neuropathic pain 09/03/2024 Telephone [facility] [place] [address] Mendez Welsh MD PhD 08/22/2024 Telephone [facility] [address] [facility] 4th Floor [address] [place] [phone] Natalie Oneill 08/17/2024 Orders Only [facility] Department of Psychiatry [address] [facility] [address] [place] [phone] Maykel Dumont MD 08/16/2024 Telephone [facility] Psychiatry [address] [place], [place] [phone] Judy Mclain, [employer] 08/15/2024 Telephone [facility] [address] [place], [place] [phone] Referral, Self 08/07/2024 Telephone [facility] Department of Psychiatry [address] [facility] [address] [place] [phone] Kate Howe 08/07/2024 1:00 PM PRESALES ENGINEER Procedure visit [facility] Otolaryngology [address] [facility] 11th [place] [address] [place] [phone] Carley Pickens Au.D. Sensorineural hearing loss (SNHL) of both ears (Primary Dx) 08/06/2024 9:30 AM PRESALES ENGINEER Telemedicine [facility] Department of Psychiatry [address] [facility] [address] [place] [phone] Maykel Dumont MD MAIKEL (generalized anxiety disorder) (Primary Dx); Tardive dyskinesia; Alcohol abuse; Hoarding disorder; Mixed obsessional thoughts and acts; Attention deficit hyperactivity disorder (ADHD), predominantly inattentive type 07/31/2024 1:27 PM PRESALES ENGINEER - 07/31/2024 11:59 PM PRESALES ENGINEER Hospital Encounter [facility] Di[facility] Imaging [address] [place] [phone] Right knee pain, unspecified chronicity; Left knee pain, unspecified chronicity Discharge Disposition: Discharge to home or self care 07/31/2024 1:30 PM PRESALES ENGINEER Office Visit [facility] Medicine [address] [place] [address] [place] [phone] Tristen Tamez MD Primary osteoarthritis of both knees (Primary Dx); History of psoriatic arthritis 07/24/2024 10:59 AM PRESALES ENGINEER - 07/24/2024 11:59 PM PRESALES ENGINEER Hospital Encounter [facility] [address] [address] Pain in left foot; Pain in right foot Discharge Disposition: Discharge to home or self care 07/24/2024 11:30 AM PRESALES ENGINEER Office Visit [facility] [address] [place] [address] Medical Office Building [address] [place] [phone] Sukumar Godwin, DPShana Pain in left foot (Primary Dx); Pain in right foot; Tailor's bunionette, right; Tailor's bunionette, left; Hammer toe of left foot; Subluxation of metatarsophalangeal joint of lesser toe of left foot, initial encounter; Acquired metatarsus varus, right; Metatarsus varus, acquired, left; Other synovitis and tenosynovitis, left ankle and foot; Degenerative joint disease of both ankles and feet 07/23/2024 Orders Only [facility] [address] [place] [address] Outpatient Health [address] [place] [phone] Mendez Welsh MD PhD 07/23/2024 8:45 AM PRESALES ENGINEER Office Visit [facility] [address] [place] [address] Outpatient Health [address] [place] [phone] Mendez Welsh MD PhD Ocular rosacea (Primary Dx); Psoriatic arthritis (HCC) from Last 3 Months Allergies No known active allergies Medications atorvastatin (LIPITOR) 10 mg tablet Take 1 tablet (10 mg total) by mouth daily 022 Active omeprazole (PriLOSEC) 40 mg capsule 022 Active traZODone (DESYREL) 150 mg tablet Take 1 tablet by mouth nightly 30 tablet 3 024 Active ramelteon (ROZEREM) 8 mg tablet Take 1 tablet by mouth nightly 30 tablet 3 025 Active Wegovy 1 mg/0.5 mL auto-injector INJECT 1MG SUBCUTANEOUSLY ONCE WEEKLY 024 Active pregabalin (LYRICA) 200 mg capsule Take 1 capsule (200 mg total) by mouth daily 60 capsule 11 Active zolpidem (AMBIEN) 5 mg tabletIndicat ions:Sleep-On set Insomnia Take 1 tablet (5 mg total) by mouth nightly as needed for sleep 30 tablet 025 2025 Active EnbreL Mini 50 mg/mL (1 mL) cartridge INJECT 50 MG (1 ML) UNDER THE SKIN ONCE A WEEK. NEED FOLLOW UP VISIT FOR MORE REFILLS 12 mL Active sertraline (ZOLOFT) 100 mg tablet TAKE 2 TABLETS BY MOUTH ONCE DAILY WITH 50MG FOR TOTAL DAILY DOSE OF 250MG 60 tablet 2 Active prednisoLONE acetate (PRED FORTE) 1 % ophthalmic suspension Administer 1 drop into both eyes 3 (three) times a day 10 mL 5 Active ipratropium (ATROVENT) 42 mcg (0.06 %) nasal spray USE 2 SPRAY(S) IN EACH NOSTRIL THREE TIMES DAILY NEEDED Active SSD 1 % cream APPLY A 1/16 INCH (1.5 MM) THICK LAYER TO ENTIRE BURN AREA TOPICALLY TWICE A DAY Active nortriptyline (PAMELOR) 10 mg capsule Take 1 capsule (10 mg total) by mouth nightly 30 capsule 025 2025 Active metroNIDAZOLE (METROGEL) 0.75 % gelIndication s:Acne Rosacea Apply topically 2 (two) times a day 45 g Active dextroampheta mine-amphetam ine XR (ADDERALL XR) 30 mg 24 hr capsule Take 1 capsule (30 mg total) by mouth daily 30 capsule 025 2024 Active nortriptyline (PAMELOR) 10 mg capsule Take 3 capsules (30 mg total) by mouth nightly 90 capsule 025 2025 Active deutetrabenaz ine XR (Austedo XR) 12 mg tablet extended release 24 hr extended release tablet Take 1 tablet (12 mg total) by mouth daily 30 tablet 1 025 2024 Active sertraline (ZOLOFT) 50 mg tablet TAKE 1 TABLET BY MOUTH ONCE DAILY IN COMBINATION WITH 200 MG FOR TOTAL DAILY DOSE OF 250 MG 30 tablet 3 025 Active sertraline (ZOLOFT) 50 mg tablet TAKE 1 TABLET BY MOUTH ONCE DAILY IN COMBINATION WITH 200 MG FOR TOTAL DAILY DOSE OF 250 MG 30 tablet 2 024 2024 Discontinued deutetrabenaz ine (Austedo) 6 mg tablet tabletIndicat ions:Tardive Dyskinesia Take 1 tablet (6 mg total) by mouth 2 (two) times a day after breakfast and lunch Take it along with food 60 tablet 025 2024 Discontinued dextroampheta mine-amphetam ine XR (ADDERALL XR) 30 mg 24 hr capsule Take 1 capsule (30 mg total) by mouth daily 30 capsule 025 2024 Discontinued(R eorder) deutetrabenaz ine XR (Austedo XR) 12 mg tablet extended release 24 hr extended release tablet Take 1 tablet (12 mg total) by mouth daily 30 tablet 1 025 2024 Discontinued(R eorder) Hospital, Clinic, or Other Facility Administered Medication Ordered Dose Route Frequency Start Date End Date Status esketamine (SPRAVATO) 14 mg/actuation nasal spray 3 sprayIndications:Sever e episode of recurrent major depressive disorder, without psychotic features (HCC) 3 spray each nostril Weekly 05/13/2022 Active Active Problems Problem Noted Date Diagnosed Date Sensorineural hearing loss (SNHL) of both ears 0 09/17/2024 Auditory hallucination 09/17/2024 Asthma 09/10/2024 Depressive disorder 09/10/2024 Insomnia 09/10/2024 Osteoarthritis 09/10/2024 Sciatica 09/10/2024 Seasonal allergies 09/10/2024 Hip pain 09/10/2024 Ocular rosacea 06/18/2024 Assessment & Plan (06/18/2024 3:40 PM PRESALES ENGINEER): Educated on findings and that this could be contributing to symptoms. Will trial low dose Doxy 50mg BID PO x 10 days. Educated to call and discontinue should experience any side effects. Will schedule interval f/u w cornea Obesity 05/14/2024 Spondylolisthesis, lumbar region 05/26/2023 Abnormal nuclear stress test 04/06/2023 Anxiety 03/22/2023 Syncope 03/22/2023 Abnormal EKG 03/22/2023 Gastroesophageal reflux disease 03/22/2023 Hyperlipidemia 03/22/2023 Psoriatic arthritis 03/22/2023 Dry eye syndrome of both eyes 10/07/2022 Assessment & Plan (06/18/2024 3:39 PM PRESALES ENGINEER): Continue Xiidra BID both eyes (OU) Assessment & Plan (10/07/2022 9:12 AM CDT): At home treatment: Buck Mask / hot compresses Ocusoft lid scrubs at bedtime (qhs) hypochlor spray BID Preservative free ATs PRN (nae-3, [place]) Consider azithromycin / doxy / steroid in future if worsening s/s. Patient would prefer to try xiidra to see if s/s improve RTC 6 months Combined forms of age-related cataract of both e yes 10/07/2022 Assessment & Plan (06/18/2024 3:39 PM PRESALES ENGINEER): Stable mild changes, NVS. Monitor Assessment & Plan (10/07/2022 9:12 AM CDT): BCVA today 20/20 c PH OU NVS / ADL being met, patient happy with vision at this time Memory change 08/03/2022 Moderate episode of recurrent major depressive d isorder 01/19/2022 Psoriatic arthropathy 08/04/2021 Tic disorder 12/22/2020 Other chest pain 06/03/2020 Generalized anxiety disorder 04/28/2020 Peripheral nerve disease 04/21/2020 Neuropathy 04/15/2020 Raynaud's disease 04/15/2020 Lumbar herniated disc 04/15/2020 Elevated triglycerides with high cholesterol 12/2019 Acid reflux 04/15/2020 Headache 04/15/2020 Panic disorder without agoraphobia 04/15/2020 Mixed obsessional thoughts and acts 04/15/2020 Hoarding disorder 04/15/2020 Essential hypertension 05/04/2016 Abnormal EKG 05/04/2016 Overview (09/25/2021): LAE Pre-op evaluation 05/04/2016 Overview (09/25/2021): Prior to shoulder athroscopic surgery 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 Adult attention deficit hyperactivity disorder 1 ADHD (attention deficit hyperactivity disorder) Immunizations Immunization Administration Dates Next Due Influenza, Quadrivalent, Rec ombinant, Egg Free, Preservative Free, Intramuscular 04/08/2021,03/24/2020 Influenza, Quadrivalent, Spl it, Intramuscular 04/21/2016,05/28/2015 Influenza, Quadrivalent, Spl it, Preservative Free, Intramuscular 04/24/2019,03/19/2018,03/03/2017 Influenza, Trivalent, IM (MDV) 05/28/2014,2012 Influenza, Unspecified 03/23/2023,2012,05/11/2012,05/13,04/30/2010,05/12/2009,04/16/2008 Influenza, Whole 05/02/2007,05/27/2006 Pfizer SARS-CoV-2 Monovalent Vaccination (12+ Yrs) PURPLE 09/02/2020,08/12/2020 Pneumococcal Polysaccharide PPV23 05/11/2012 Td, adsorbed 05/10/2006 Tdap 05/11/2012,07/11/2011 ZOSTER Recombinant 01/14/2018,10/29/2017 Social History Tobacco Use Types Packs/Day Years Used Date Smoking Tobacco: Former Cigarettes Q uit: 1992 Smokeless Tobacco: Never Tobacco Cessation:Counseling Given: Not Answered Alcohol Use Standard Drinks/Week Comments Yes 0 (1 standard drink = 0.6 oz pur e alcohol) rare AUDIT-C Answer Date Recorded Q1: How often do you have a drink containing alc ohol? 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 Not on file Not on file Not on file Last Filed Vital Signs Vital Sign Reading Time Taken Comments Blood Pressure 137/77 07/24/2024 11:36 AM PRESALES ENGINEER Pulse 60 07/24/2024 11:36 AM PRESALES ENGINEER Temperature 36.1 C (97 F) 07/24/2024 11:36 AM PRESALES ENGINEER Respiratory Rate 18 02/21/2024 10:3 9 AM CDT Oxygen Saturation 97% 07/24/2024 11: 36 AM PRESALES ENGINEER Inhaled Oxygen Concentration - - Weight 74.8 kg (164 lb 13.9 oz) 025 11:21 AM CDT Height 160 cm (5' 3 ) 07/31/2024 1:51 PM PRESALES ENGINEER Body Mass Index 29.21 07/31/2024 1:51 PM PRESALES ENGINEER Plan of Treatment Not on file Procedures Procedure Name Priority Date/Time Associated Diagnosis Comments VITAMIN B1 Routine 08/14/2024 11:40 AM PRESALES ENGINEER MAIKEL (generalized anxiety disorder) Alcohol abuse FOLATE Routine 08/14/2024 11:40 AM PRESALES ENGINEER MAIKEL (generalized anxiety disorder) VITAMIN B12 Routine 08/14/2024 11:40 AM PRESALES ENGINEER MAIKEL (generalized anxiety disorder) VITAMIN D 25 HYDROXY Routine 08/14/2024 11:40 AM PRESALES ENGINEER MAIKEL (generalized anxiety disorder) AUDBASE RESULTS 08/07/2024 12:55 PM PRESALES ENGINEER XR KNEE LEFT 3 VIEWS Schedule Routine, Read Routine (OP Routine) 07/31/2024 1:36 PM PRESALES ENGINEER Left knee pain, unspecified chronicity XR KNEE RIGHT 3 VIEWS Schedule Routine, Read Routine (OP Routine) 07/31/2024 1:36 PM PRESALES ENGINEER Right knee pain, unspecified chronicity XR FOOT RIGHT 3 OR MORE VIEWS Schedule Routine, Read Routine (OP Routine) 07/24/2024 11:23 AM PRESALES ENGINEER Pain in right foot XR FOOT LEFT 3 OR MORE VIEWS Schedule Routine, Read Routine (OP Routine) 07/24/2024 11:23 AM PRESALES ENGINEER Pain in left foot HEPATITIS C ANTIBODY Routine 12/01/2020 12:13 PM CDT Psoriatic arthritis (HCC) from Last 3 Months or Most Recently Relevant to Health Maintenance Results * Vitamin D 25 hydroxy (08/14/2024 11:40 AM PRESALES ENGINEER) Vitamin D, 25-Hydroxy 32.4 30.0 - 100.0 ng/mL [facility] - 01 Comment: Vitamin D deficiency has been defined by the [place] [employer] and an Endocrine Society practice guideline as a level of serum 25-OH vitamin D less than 20 ng/mL (1,2). The Endocrine Society went on to further define vitamin D insufficiency as a level between 21 and 29 ng/mL (2). 1. IOM ([place] [employer]). 2010. Dietary reference intakes for calcium and D. [place]: The National Academies Press. 2. Michael MF, Jesús TEAGUE, Arturo JENKINS, et al. Evaluation, treatment, and prevention of vitamin D deficiency: an Endocrine Society clinical practice guideline. JCEM. 2011 Jan; 96(7):1911-30. Blood 08/14/2024 11:4 0 AM PRESALES ENGINEER 08/14/2024 Narrative [facility] - 08/15/2024 7:09 AM PRESALES ENGINEER Performed at: [address] [place] [id number] Car Checker: Azael Davis PhD, Phone: [phone] us Maykel Dumont MD LAB BLOOD ORDERABLES Fin al Result [facility] - 01 * Vitamin B1 (08/14/2024 11:40 AM PRESALES ENGINEER) Thiamine (Vit B1) 137.7 66.5 - 200.0 nmol/L [facility] - 01 Blood 08/14/2024 11:4 0 AM PRESALES ENGINEER 08/14/2024 Narrative [facility] - 08/21/2024 7:07 AM PRESALES ENGINEER Test(s) 658534-Eyx. B1, Whole Blood was developed and its performance characteristics determined by [facility]. It has not been cleared or approved by the Food and Drug Administration. Performed at: [address] [id number] Car Checker: Uriah Jorge MD, Phone: [phone] Maykel Dumont MD LAB BLOOD ORDERABLES Fin al Result Performing Organization Address [facility] Co de Phone Number [facility] - * Folate (08/14/2024 11:40 AM PRESALES ENGINEER) [facility] Folate 18.3 >3.0 ng/mL [facility] - Comment: A serum folate concentration of less than 3.1 ng/mL is considered to represent clinical deficiency. Blood 08/14/2024 11:4 0 AM PRESALES ENGINEER 08/14/2024 Narrative [facility] - 08/15/2024 4:07 AM PRESALES ENGINEER Performed at: [address] [id number] Car Checker: Azael Davis PhD, Phone: [phone] Maykel Dumont MD LAB BLOOD ORDERABLES Fin al Result Performing Organization Address [facility] de Phone Number [facility] - * Vitamin B12 (08/14/2024 11:40 AM PRESALES ENGINEER) [facility] Vitamin B12 793 232 - 1,245 pg/mL [facility] - Blood 08/14/2024 11:4 0 AM PRESALES ENGINEER 08/14/2024 Narrative [facility] - 08/15/2024 3:35 AM PRESALES ENGINEER Performed at: [address] [place] [id number] Car Checker: Azael Davis PhD, Phone: [phone] Maykel Dumont MD LAB BLOOD ORDERABLES [facility] al Result [facility] - 01 * [facility] Results (08/07/2024 12:55 PM PRESALES ENGINEER) us Provider Scanning AUDIOLOGY SERVICES ORDERABLES Edited Result - Final * XR Knee Right 3 Views (07/31/2024 1:36 PM PRESALES ENGINEER) Anatomical Region Laterality Modality Lower Extremities, Knee Right Computed Radiography 07/31/2024 1:51 PM PRESALES ENGINEER Narrative 07/31/2024 1:51 PM PRESALES ENGINEER EXAM DESCRIPTION: XR KNEE RIGHT 3 VIEWS REASON FOR STUDY: pain COMPARISON: None. FINDINGS: Three views of the right knee are reviewed. These images reveal no acute fractures or dislocations. There is mild medial compartment joint space narrowing. There is a small amount of patellofemoral osteophyte formation and very subtle calcifications seen within the lateral meniscus that may represent chronic chondrocalcinosis. IMPRESSION: Chondrocalcinosis and mild degenerative changes right knee. THIS IS AN ELECTRONICALLY VERIFIED FINAL REPORT 07/31/2024 1:51 PM - Electronically signed by Tristen HART T: Report ID: [id number] Reading Location: [place] [address] Procedure Note Tristen Tamez MD - 07/31/2024 EXAM DESCRIPTION: XR KNEE RIGHT 3 VIEWS REASON FOR STUDY: pain COMPARISON: None. FINDINGS: Three views of the right knee are reviewed. These images reveal no acute fractures or dislocations. There is mild medial compartment joint space narrowing. There is a small amount of patellofemoral osteophyte formationand very subtle calcifications seen within the lateral meniscus that mayrepresent chronic chondrocalcinosis. IMPRESSION: Chondrocalcinosis and mild degenerative changes right knee. THIS IS AN ELECTRONICALLY VERIFIED FINAL REPORT 07/31/2024 1:51 PM - Electronically signed by Tristen HART T: Report ID: [id number] Reading Location: [place] [address] us Tristen Tamez MD IMG XR PROCEDURES Final Resu lt * XR Knee Left 3 Views (07/31/2024 1:36 PM PRESALES ENGINEER) Anatomical Region Laterality Modality Lower Extremities, Knee Left Computed Radiography 07/31/2024 1:50 PM PRESALES ENGINEER Narrative 07/31/2024 1:50 PM PRESALES ENGINEER EXAM DESCRIPTION: XR KNEE LEFT 3 VIEWS REASON FOR STUDY: Left knee pain COMPARISON: Left knee x-ray from 09/25/2021 FINDINGS: Three views of the left knee are reviewed. These images reveal no acute fractures or dislocations. There is moderate medial compartment joint space narrowing appreciated both in the standard AP and Martinez projection. There is marrow patellofemoral osteophytes. There is no abnormal bone destruction noted. IMPRESSION: DJD left knee with medial and patellofemoral involvement at a moderate degree. THIS IS AN ELECTRONICALLY VERIFIED FINAL REPORT 07/31/2024 1:50 PM - Electronically signed by Tristen Tamez T: Report ID: [id number] Reading Location: [place] [address] Procedure Note Tristen Tamez MD - 07/31/2024 EXAM DESCRIPTION: XR KNEE LEFT 3 VIEWS REASON FOR STUDY: Left knee pain COMPARISON: Left knee x-ray from 09/25/2021 FINDINGS: Three views of the left knee are reviewed. These images reveal no acute fractures or dislocations. There is moderate medial compartment jointspace narrowing appreciated both in the standard AP and Martinez projection.There is marrow patellofemoral osteophytes. There is no abnormal bonedestruction noted. IMPRESSION: DJD left knee with medial and patellofemoral involvement at a moderate degree. THIS IS AN ELECTRONICALLY VERIFIED FINAL REPORT 07/31/2024 1:50 PM - Electronically signed by Tristen Tamez T: Report ID: [id number] Reading Location: [place] [address] us Tristen Tamez MD IMG XR PROCEDURES Final Resu lt * XR Foot Right 3 or More Views (07/24/2024 11:23 AM PRESALES ENGINEER) Anatomical Region Laterality Modality Lower Extremities, Foot Right Computed Radiography 07/24/2024 1:31 PM PRESALES ENGINEER Impressions 07/24/2024 1:31 PM PRESALES ENGINEER 1. Polyarticular osteoarthritis in the bilateral feet, worst and moderate in the midfoot. Electronically signed by: Satya Juan D.O. Narrative 07/24/2024 1:31 PM PRESALES ENGINEER EXAMINATION: XR FOOT LEFT 3 OR MORE VIEWS, XR FOOT RIGHT 3 OR MORE VIEWS HISTORY: Bilateral foot pain FINDINGS: Comparison with 07/21/2020 radiographs. Right foot: No acute fracture or dislocation. Moderate midfoot osteoarthritis and mild osteoarthritis of multiple interphalangeal joints. No osseous erosions. Small plantar calcaneal spur and Achilles enthesophyte. Left foot: No acute fracture or dislocation. Moderate midfoot osteophyte there is mild osteoarthritis of multiple interphalangeal joints. No osseous erosions. Small Achilles enthesophyte. Procedure Note Satya Juan, DO - 07/24/2024 EXAMINATION: XR FOOT LEFT 3 OR MORE VIEWS, XR FOOT RIGHT 3 OR MORE VIEWS HISTORY: Bilateral foot pain FINDINGS: Comparison with 07/21/2020 radiographs. Right foot: No acute fracture or dislocation. Moderate midfoot osteoarthritis and mild osteoarthritis of multiple interphalangeal joints. No osseous erosions. Small plantar calcaneal spur and Achilles enthesophyte. Left foot: No acute fracture or dislocation. Moderate midfoot osteophyte there is mild osteoarthritis of multiple interphalangeal joints. No osseous erosions. Small Achilles enthesophyte. IMPRESSION: 1. Polyarticular osteoarthritis in the bilateral feet, worst and moderate in the midfoot. Electronically signed by: Satya Juan D.O. Sukumar Godwin DPM IMG XR PROCEDURES Final R esult * XR Foot Left 3 or More Views (07/24/2024 11:23 AM PRESALES ENGINEER) Anatomical Region Laterality Modality Lower Extremities, Foot Left Computed Radiography 07/24/2024 1:31 PM PRESALES ENGINEER Impressions 07/24/2024 1:31 PM PRESALES ENGINEER 1. Polyarticular osteoarthritis in the bilateral feet, worst and moderate in the midfoot. Electronically signed by: Satya Juan D.O. Narrative 07/24/2024 1:31 PM PRESALES ENGINEER EXAMINATION: XR FOOT LEFT 3 OR MORE VIEWS, XR FOOT RIGHT 3 OR MORE VIEWS HISTORY: Bilateral foot pain FINDINGS: Comparison with 07/21/2020 radiographs. Right foot: No acute fracture or dislocation. Moderate midfoot osteoarthritis and mild osteoarthritis of multiple interphalangeal joints. No osseous erosions. Small plantar calcaneal spur and Achilles enthesophyte. Left foot: No acute fracture or dislocation. Moderate midfoot osteophyte there is mild osteoarthritis of multiple interphalangeal joints. No osseous erosions. Small Achilles enthesophyte. Procedure Note Satya Juan, DO - 07/24/2024 EXAMINATION: XR FOOT LEFT 3 OR MORE VIEWS, XR FOOT RIGHT 3 OR MORE VIEWS HISTORY: Bilateral foot pain FINDINGS: Comparison with 07/21/2020 radiographs. Right foot: No acute fracture or dislocation. Moderate midfoot osteoarthritis and mild osteoarthritis of multiple interphalangeal joints. No osseous erosions. Small plantar calcaneal spur and Achilles enthesophyte. Left foot: No acute fracture or dislocation. Moderate midfoot osteophyte there is mild osteoarthritis of multiple interphalangeal joints. No osseous erosions. Small Achilles enthesophyte. IMPRESSION: 1. Polyarticular osteoarthritis in the bilateral feet, worst and moderate in the midfoot. Electronically signed by: Satya Juan D.O. Sukumar Godwin DPM IMG XR PROCEDURES Final R esult * Hepatitis C antibody (12/01/2020 12:13 PM CDT) Hep C Ab Nonreactive Nonreactive [facility] Comment: Interpretive Data Nonreactive: Antibodies to HCV not detected. Does NOT exclude the possibility of recent exposure to HCV. Equivocal: Equivocal for HCV antibodies. Supplemental molecular testing will be automatically performed to determine infection status in accordance with current CDC screening recommendations. Reactive: Positive for HCV antibodies. This may represent current or past HCV infection. Supplemental molecular testing will be automatically performed to determine current infection status in accordance with current CDC screening recommendations. Interpretive data was last revised on 2019. Testing performed by: [facility], [facility], [place]., [address] Blood specimen (specimen) 12/01/2020 12:13 PM CDT 12/01/2020 1:52 PM CDT us María Elena Martinez MD LAB MICROBIOLOGY - GENERAL ORDERABLES Final Result [facility] [address] [facility]. Department [place] [address] from Last 3 Months or Most Recently Relevant to Health Maintenance Insurance [facility] [employer] H[employer]/PPO Address: [facility] [address] [place] [address] [facility] [employer] H[facility]/PPO Address: [address] [address] [place] [address] [facility] [employer] [facility] HMO/PPO Address: [address] [address] [place] [address] [facility] [employer] [facility] H[employer]/PPO Address: [address] [address] [place] [address] Care Teams Behaviorist Relationship Specialty Start Date End Date Rachel Pineda MD PCP - General 06/02/20 Rachel Pineda MD Derrick Hand 06/02/20
--- OUTSIDE RECORDS SUMMARY | 2024-10-18 07:37 | XMS_ITS | Clinical Summary ---
Author Organization [facility] [address] Address [address] [place] [address] Care Team Providers Care Blower And Compressor Assembler Name Role Phone Rachel Pineda MD Primary Care Provider [phone] Rachel Pineda MD Unavailable Allergies No known active allergies Medications atorvastatin [...] total) by mouth daily 60 capsule 11 025 Active zolpidem (AMBIEN) 5 mg tabletIndicat ions:Sleep-On set Insomnia Take 1 tablet (5 mg total) by mouth nightly as needed for sleep 30 tablet 025 2025 Active EnbreL Mini 50 mg/mL (1 mL) cartridge INJECT 50 MG (1 ML) UNDER THE SKIN ONCE A WEEK. NEED FOLLOW UP VISIT FOR MORE REFILLS 12 mL 025 Active sertraline (ZOLOFT) 100 mg tablet TAKE [...] mg total) by mouth nightly 30 capsule 11 025 2025 Active metroNIDAZOLE (METROGEL) 0.75 % gelIndication s:Acne Rosacea Apply topically 2 (two) times a day 45 g Active dextroampheta mine-amphetam ine XR (ADDERALL XR) 30 mg 24 hr capsule Take 1 capsule (30 mg total) by mouth daily 30 capsule 025 2024 Active nortriptyline (PAMELOR) 10 mg capsule Take 3 capsules (30 mg total) by mouth nightly 90 capsule 11 2025 Active deutetrabenaz ine XR (Austedo XR) 12 mg tablet extended release 24 hr extended release tablet Take 1 tablet (12 mg total) by mouth daily 30 tablet 1 025 2024 Active sertraline (ZOLOFT) 50 mg tablet TAKE 1 TABLET BY MOUTH ONCE DAILY IN COMBINATION WITH 200 MG FOR TOTAL DAILY DOSE OF 250 MG 30 tablet 3 Active sertraline (ZOLOFT) 50 mg tablet TAKE [...] 06/18/2024 Assessment & Plan (06/18/2024 3:40 PM TASSEL MAKING MACHINE OPERATOR): Educated on findings and that this could [...] 10/07/2022 Assessment & Plan (06/18/2024 3:39 PM TASSEL MAKING MACHINE OPERATOR): Continue Xiidra BID both eyes (OU) Assessment & Plan (10/07/2022 9:12 AM CDT): At home treatment: Buck Mask / hot compresses Ocusoft lid scrubs at bedtime (qhs) hypochlor spray BID Preservative free ATs PRN (nae-3, Clarks) Consider azithromycin / doxy / steroid in future if worsening s/s. Patient would prefer to try xiidra to see if s/s improve RTC 6 months Combined forms of age-related cataract of both e yes 10/07/2022 Assessment & Plan (06/18/2024 3:39 PM TASSEL MAKING MACHINE OPERATOR): Stable mild changes, NVS. Monitor Assessment & [...] disorder 1 ADHD (attention deficit hyperactivity disorder) Encounters Date Type Department Care Team Description 09/20/2024 Telephone [facility] Department of Psychiatry [address] [place] [address] [place], [place] [address] Kate Howe 09/17/2024 11:20 AM CDT Office Visit [facility] ([facility]) - [facility] [address] [facility] 11th [place] [address] [place] [address] Liang Bruno MD Sensorineural hearing loss (SNHL) of both ears (Primary Dx); Auditory hallucination 09/10/2024 9:45 AM TASSEL MAKING MACHINE OPERATOR Office Visit [facility] Ophthalmology [address] [facility] 6th [place] [address] Mendez Welsh MD PhD Ocular rosacea (Primary Dx); Ocular pain, bilateral; Neuropathic pain 09/10/2024 Orders Only [facility] Ophthalmology [address] [facility] 6th [place] [address] Mendez Welsh MD PhD 09/03/2024 Telephone [facility] Ophthalmology [facility] [place] [address] Mendez Welsh MD PhD 08/22/2024 Telephone [facility] [address] [facility] 4th Floor [address] [place] [address] Natalie Oneill 08/17/2024 Orders Only [facility] Department of Psychiatry [address] [facility] [address] [place] [address] Maykel Dumont MD 08/16/2024 Telephone [facility] Psychiatry [address] [place] [address] Judy Mclain CMA [employer] 08/15/2024 Telephone [facility] Psychiatry [facility] [place] [address] Referral, Self 08/07/2024 1:00 PM TASSEL MAKING MACHINE OPERATOR Procedure visit [facility] Otolaryngology [facility] [address] [place] [address] [place] [address] Carley Pickens Au.D. Sensorineural hearing loss (SNHL) of both ears (Primary Dx) 08/07/2024 Telephone [facility] Department of Psychiatry [address] [facility] [address] [place] [address] Kate Howe 08/06/2024 9:30 AM TASSEL MAKING MACHINE OPERATOR Telemedicine [facility] Department of Psychiatry [address] [facility] [address] [place] [address] Maykel Dumont MD MAIKEL (generalized anxiety disorder) (Primary Dx); Tardive dyskinesia; Alcohol abuse; Hoarding disorder; Mixed obsessional thoughts and acts; Attention deficit hyperactivity disorder (ADHD), predominantly inattentive type 07/31/2024 1:30 PM TASSEL MAKING MACHINE OPERATOR Office Visit [facility] [address] [place] [address] [address] [place] [phone] Tristen Tamez MD Primary osteoarthritis of both knees (Primary Dx); History of psoriatic arthritis 07/31/2024 1:27 PM TASSEL MAKING MACHINE OPERATOR - 07/31/2024 11:59 PM TASSEL MAKING MACHINE OPERATOR Hospital Encounter [facility] [address] [place] [address] Right knee pain, unspecified chronicity; Left knee pain, unspecified chronicity Discharge Disposition: Discharge to home or self care 07/24/2024 11:30 AM TASSEL MAKING MACHINE OPERATOR Office Visit [facility] Surgery [facility] Office Building [address] [place] [phone] Sukumar Godwin, HELADIO Pain in left foot (Primary Dx); Pain in right foot; Tailor's bunionette, right; Tailor's bunionette, left; Hammer toe of left foot; Subluxation of metatarsophalangeal joint of lesser toe of left foot, initial encounter; Acquired metatarsus varus, right; Metatarsus varus, acquired, left; Other synovitis and tenosynovitis, left ankle and foot; Degenerative joint disease of both ankles and feet 07/24/2024 10:59 AM TASSEL MAKING MACHINE OPERATOR - 07/24/2024 11:59 PM TASSEL MAKING MACHINE OPERATOR Hospital Encounter [facility] Imaging [address] [address] [place] [address] Pain in left foot; Pain in right foot Discharge Disposition: Discharge to home or self care 07/23/2024 8:45 AM TASSEL MAKING MACHINE OPERATOR Office Visit [facility] Ophthalmology [address] [facility] 6th [place] [address] Mendez Welsh MD PhD Ocular rosacea (Primary Dx); Psoriatic arthritis (HCC) 07/23/2024 Orders Only [facility] Ophthalmology [address] [facility] 6th [place] [address] Mendez Welsh MD PhD from Last 3 Months Immunizations Immunization Administration Dates Next Due Influenza, Quadrivalent, Rec ombinant, Egg Free, Preservative Free, Intramuscular 04/08/2021,03/24/2020 Influenza, Quadrivalent, Spl it, Intramuscular 04/21/2016,05/28/2015 Influenza, Quadrivalent, Spl it, Preservative Free, Intramuscular 04/24/2019,03/19/2018,03/03/2017 Influenza, Trivalent, IM (MDV) 05/28/2014,2012 Influenza, Unspecified 03/23/2023,2012,05/11/2012,05/13,04/30/2010,05/12/2009,04/16/2008 Influenza, Whole 05/02/2007,05/27/2006 Pfizer SARS-CoV-2 Monovalent Vaccination (12+ Yrs) PURPLE 09/02/2020,08/12/2020 Pneumococcal Polysaccharide PPV23 05/11/2012 Td, adsorbed 05/10/2006 Tdap 05/11/2012,07/11/2011 ZOSTER Recombinant 01/14/2018,10/29/2017 Surgical History Surgery Date Site/Laterality Comments SECTION ROTATOR CUFF REPAIR 07/11/2016 - 07/10/2017 Left ROTATOR CUFF REPAIR 07/11/2019 - 07/10/2020 Right BACK SURGERY CHOLECYSTECTOMY APPENDECTOMY Medical History Medical History Date Comments ADHD (attention deficit hyperactivity disorder) Anxiety Arthritis Asthma Depression Gastric reflux Hypercholesteremia Migraines Osteoarthritis Psoriatic arthritis (HCC) Family History Medical History Relation Name Comments Alcohol abuse Father Arthritis Father Cancer Father Diabetes Father Heart disease Father Arthritis Mother Heart disease Mother Mental illness Mother Relation Name Status Comments Father Mother Social History Tobacco [...] on file Legal Sex Female 6:28 AM TASSEL MAKING MACHINE OPERATOR Gender Identity Female 04/14/2020 7:17 PM CDT Sexual Orientation Straight 04/14/2020 7: 17 PM CDT 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 Not on file Not on file Obstetrics History Last Filed Vital Signs Vital Sign Reading Time Taken Comments Blood Pressure 137/77 07/24/2024 11:36 AM TASSEL MAKING MACHINE OPERATOR Pulse 60 07/24/2024 11:36 AM TASSEL MAKING MACHINE OPERATOR Temperature 36.1 C (97 F) 07/24/2024 11:36 AM TASSEL MAKING MACHINE OPERATOR Respiratory Rate 18 02/21/2024 10:3 9 AM CDT Oxygen Saturation 97% 07/24/2024 11: 36 AM TASSEL MAKING MACHINE OPERATOR Inhaled Oxygen Concentration - - Weight 74.8 kg (164 lb 13.9 oz) 025 11:21 AM CDT Height 160 cm (5' 3 ) 07/31/2024 1:51 PM TASSEL MAKING MACHINE OPERATOR Body Mass Index 29.21 07/31/2024 1:51 PM TASSEL MAKING MACHINE OPERATOR Plan of Treatment Health Maintenance Due Date Last Done Comments Breast Cancer Screening-Mammogram 1957 Colon Cancer Screening-Colonoscopy 1955 Depression Screening 1957 Fall Risk Assessment 1957 Osteoporosis Screening-Bone Density Scan 1957 Hepatitis B Screening 1975 Pneumococcal vaccine 65+ (2 of 2 - PCV) 05/11/2013 05/11/2012 Well Visit 65+ 2022 Covid-19 Vaccine (2023-2 5 season) 2024 10/16/2021, 02/23/2021, 09/02/2020, Additional history exists DTaP/Tdap/Td Vaccine (4 - Td or Tdap) 05/04/2032 05/04/2022, 05/11/2012, 07/11/2011, Additional history exists Zoster Vaccine Completed 01/14/2018, 10/29/2017 Hepatitis C Screening Completed 12/01/2020 Influenza Vaccine Completed 03/14/2024, , 03/30/2022, Additional history exists Procedures Procedure Name Priority Date/Time Associated Diagnosis Comments VITAMIN B1 Routine 08/14/2024 11:40 AM TASSEL MAKING MACHINE OPERATOR MAIKEL (generalized anxiety disorder) Alcohol abuse FOLATE Routine 08/14/2024 11:40 AM TASSEL MAKING MACHINE OPERATOR MAIKEL (generalized anxiety disorder) VITAMIN B12 Routine 08/14/2024 11:40 AM TASSEL MAKING MACHINE OPERATOR MAIKEL (generalized anxiety disorder) VITAMIN D 25 HYDROXY Routine 08/14/2024 11:40 AM TASSEL MAKING MACHINE OPERATOR MAIKEL (generalized anxiety disorder) AUDBASE RESULTS 08/07/2024 12:55 PM TASSEL MAKING MACHINE OPERATOR XR KNEE LEFT 3 VIEWS Schedule Routine, Read Routine (OP Routine) 07/31/2024 1:36 PM TASSEL MAKING MACHINE OPERATOR Left knee pain, unspecified chronicity XR KNEE RIGHT 3 VIEWS Schedule Routine, Read Routine (OP Routine) 07/31/2024 1:36 PM TASSEL MAKING MACHINE OPERATOR Right knee pain, unspecified chronicity XR FOOT RIGHT 3 OR MORE VIEWS Schedule Routine, Read Routine (OP Routine) 07/24/2024 11:23 AM TASSEL MAKING MACHINE OPERATOR Pain in right foot XR FOOT LEFT 3 OR MORE VIEWS Schedule Routine, Read Routine (OP Routine) 07/24/2024 11:23 AM TASSEL MAKING MACHINE OPERATOR Pain in left foot HEPATITIS C ANTIBODY Routine 12/01/2020 12:13 PM CDT Psoriatic arthritis (HCC) from Last 3 Months or Most Recently Relevant to Health Maintenance Results * Vitamin D 25 hydroxy (08/14/2024 11:40 AM TASSEL MAKING MACHINE OPERATOR) Pathologist [facility] Vitamin D, 25-Hydroxy 32.4 30.0 - 100.0 ng/mL [facility] - 01 Comment: Vitamin D deficiency has been defined by the [place] of Medicine and an Endocrine Society practice guideline as a level of serum 25-OH vitamin D less than 20 ng/mL (1,2). The Endocrine Society went on to further define vitamin D insufficiency as a level between 21 and 29 ng/mL (2). 1. IOM ([place] of Medicine). 2010. Dietary reference intakes for calcium and D. [place]: The National Academies Press. 2. Michael MF, Jesús [place], Arturo JENKINS, et al. Evaluation, treatment, and prevention of vitamin D deficiency: an Endocrine Society clinical practice guideline. JCEM. 2010; 96(9):1911-30. Blood 08/14/2024 11:4 0 AM TASSEL MAKING MACHINE OPERATOR 08/14/2024 Narrative [facility] - 08/15/2024 7:09 AM TASSEL MAKING MACHINE OPERATOR Performed at: - [address] [id number] Engine Room Helper: Azael Davis PhD, Phone: [phone] Maykel Dumont MD LAB BLOOD ORDERABLES Fin al Result Performing Organization Address [facility] de Phone Number [facility] - 01 * Vitamin B1 (08/14/2024 11:40 AM TASSEL MAKING MACHINE OPERATOR) [facility] Thiamine (Vit B1) 137.7 66.5 - 200.0 nmol/L [facility] - 01 Blood 08/14/2024 11:4 0 AM TASSEL MAKING MACHINE OPERATOR 08/14/2024 Narrative [facility] - 08/21/2024 7:07 AM TASSEL MAKING MACHINE OPERATOR Test(s) 332797-Swe. B1, Whole Blood was developed and its performance characteristics determined by [facility]. It has not been cleared or approved by the Food and Drug Administration. Performed at: [address] [id number] Engine Room Helper: Uriah Jorge MD, Phone: [phone] Maykel Dumont MD LAB BLOOD ORDERABLES Fin al Result Performing Organization Address [facility] Co de Phone Number [facility] - 01 * Folate (08/14/2024 11:40 AM TASSEL MAKING MACHINE OPERATOR) Pathologist [facility] Folate 18.3 >3.0 ng/mL [facility] - 01 Comment: A serum folate concentration of less than 3.1 ng/mL is considered to represent clinical deficiency. Blood 08/14/2024 11:4 0 AM TASSEL MAKING MACHINE OPERATOR 08/14/2024 Narrative [facility] - 08/15/2024 4:07 AM TASSEL MAKING MACHINE OPERATOR Performed at: [address] [place] [address] Engine Room Helper: Azael Davis PhD, Phone: [phone] Maykel Dumont MD LAB BLOOD ORDERABLES Fin al Result Performing Organization Address [facility] de Phone Number [facility] - 01 * Vitamin B12 (08/14/2024 11:40 AM TASSEL MAKING MACHINE OPERATOR) Pathologist [facility] Vitamin B12 793 232 - 1,245 pg/mL [facility] - Blood 08/14/2024 11:4 0 AM TASSEL MAKING MACHINE OPERATOR 08/14/2024 Narrative [facility] - 08/15/2024 3:35 AM TASSEL MAKING MACHINE OPERATOR Performed at: [address] [place] [id number] Engine Room Helper: Azael Davis PhD, Phone: [phone] Maykel Dumont MD LAB BLOOD ORDERABLES Fin al Result Performing Organization Address [facility] Co de Phone Number [facility] - 01 * [facility] Results (08/07/2024 12:55 PM TASSEL MAKING MACHINE OPERATOR) Provider Scanning AUDIOLOGY SERVICES ORDERABLES Edited Result - Final * XR Knee Right 3 Views (07/31/2024 1:36 PM TASSEL MAKING MACHINE OPERATOR) Anatomical Region Laterality Modality Lower Extremities, Knee Right Computed Radiography 07/31/2024 1:51 PM TASSEL MAKING MACHINE OPERATOR Narrative 07/31/2024 1:51 PM TASSEL MAKING MACHINE OPERATOR EXAM DESCRIPTION: XR KNEE RIGHT 3 VIEWS [...] 1:51 PM - Electronically signed by Tristen Tamez T: Report ID: [id number] Reading Location: [place] [address] Procedure Note Tristen Tamez MD - 07/31/2024 [...] 1:51 PM - Electronically signed by Tristen Tamez T: Report ID: [id number] Reading Location: [place] [address] Tristen Tamez MD IMG XR PROCEDURES Final Resu lt * XR Knee Left 3 Views (07/31/2024 1:36 PM TASSEL MAKING MACHINE OPERATOR) Anatomical Region Laterality Modality Lower Extremities, Knee Left Computed Radiography 07/31/2024 1:50 PM TASSEL MAKING MACHINE OPERATOR Narrative 07/31/2024 1:50 PM TASSEL MAKING MACHINE OPERATOR EXAM DESCRIPTION: XR KNEE LEFT 3 VIEWS [...] signed by Tristen Tamez T: Report ID: [id number] Reading Location: [place] [address] Procedure Note Tristen Tamez MD - 07/31/2024 [...] signed by Tristen Tamez T: Report ID: [id number] Reading Location: [place] [address] Tristen Tamez MD IMG XR PROCEDURES Final Resu lt * XR Foot Right 3 or More Views (07/24/2024 11:23 AM TASSEL MAKING MACHINE OPERATOR) Anatomical Region Laterality Modality Lower Extremities, Foot Right Computed Radiography 07/24/2024 1:31 PM TASSEL MAKING MACHINE OPERATOR Impressions 07/24/2024 1:31 PM TASSEL MAKING MACHINE OPERATOR 1. Polyarticular osteoarthritis in the bilateral feet, worst and moderate in the midfoot. Electronically signed by: Satya Juan D.O. Narrative 07/24/2024 1:31 PM TASSEL MAKING MACHINE OPERATOR EXAMINATION: XR FOOT LEFT 3 OR MORE [...] erosions. Small Achilles enthesophyte. Procedure Note Satya Juan DO - 07/24/2024 EXAMINATION: XR FOOT LEFT [...] signed by: Satya Juan D.O. Sukumar Godwin DP IMG XR PROCEDURES Final R esult * XR Foot Left 3 or More Views (07/24/2024 11:23 AM TASSEL MAKING MACHINE OPERATOR) Anatomical Region Laterality Modality Lower Extremities, Foot Left Computed Radiography 07/24/2024 1:31 PM TASSEL MAKING MACHINE OPERATOR Impressions 07/24/2024 1:31 PM TASSEL MAKING MACHINE OPERATOR 1. Polyarticular osteoarthritis in the bilateral feet, worst and moderate in the midfoot. Electronically signed by: Satya Juan D.O. Narrative 07/24/2024 1:31 PM TASSEL MAKING MACHINE OPERATOR EXAMINATION: XR FOOT LEFT 3 OR MORE [...] erosions. Small Achilles enthesophyte. Procedure Note Satya Juan DO - 07/24/2024 EXAMINATION: XR FOOT LEFT [...] last revised on 2019. Testing performed by: [facility], [facility], [place]., [address] Blood specimen (specimen) 12/01/2020 12:13 PM CDT 12/01/2020 1:52 PM CDT María Elena Martinez MD LAB MICROBIOLOGY - GENERAL ORDERABLES Final Result [facility] [address] [facility]. Department [place] [address] from Last 3 Months or Most Recently Relevant to Health Maintenance Insurance [facility] [employer] [facility] [employer] [employer] H[employer]/PPO Address: [address] [address] [place] [address] [facility] CHOICE PLUS [facility] H[employer]/PPO Address: [address] [address] [place] [address] [facility] [employer] [facility] H[employer]/PPO Address: [address] [address] [place] [address] [facility] [employer] [facility] H[employer]/PPO Address: [address] [address] [place] [address] Care Teams Blower And Compressor Assembler Relationship Specialty Start Date End Date Rachel Pineda MD PCP - General 06/02/20 Rachel Pineda MD Internal Control Manager 06/02/20
--- OUTSIDE RECORDS SUMMARY | 2024-10-18 07:37 | XMS_ITS | Continuity of Care Document ---
Author Organization [facility] Address [address] [place] [address] Phone Care Team Providers Care Program Evaluator Name Role Phone Adonay Barker MD Unavailable Unavailable Procedures Procedure Date MRI, LUMBAR SPINE W/O CONTRAST Advance Directives Directive Yes / No Effective Date File Name No Information Encounters Encounter Description Practice Location Reason(s) For Visit Diagnoses Date Provider Providers [facility] [address], [place], [place], [id number], [place] tel:[phone] [facility] No Information Lucero Urias. [address] [place], [place], [id number], [place]. tel:[phone] Referring Provider: Cristo Baca DO, [address], [place], [address]. tel:[phone] Family History Family Member Type Diagnosis Age At Onset No Information Payers Payer name Insurance type Covered libertarian ID Authoriza ticara(s) [facility] CI [id number] Social History Type Description Quantity Date Captured [...]
--- OUTSIDE RECORDS SUMMARY | 2024-10-18 07:37 | XMS_ITS | Encounter Summary ---
Author Organization [facility] Address [address] [place] [address] Phone Care Team Providers Care Missing Persons Investigator Name Role Phone Rachel Pineda MD Primary Care Provider [phone] Rachel Pineda MD Unavailable Encounter Details Date Type Department Care Team (Late st Contact Info) Description 05/15/2024 Orders Only [facility] Scanning, Provider Social History Tobacco Use Types Packs/Day Years Used Date Smoking Tobacco: Former Cigarettes Q uit: 1991 Smokeless Tobacco: Never Alcohol Use Standard Drinks/Week [...] on file Legal Sex Female 6:28 AM MILL CRANE OPERATOR Gender Identity Female 04/14/2020 7:17 PM CDT Sexual Orientation Straight 04/14/2020 7: 17 PM CDT documented as of this encounter Plan of Treatment Not on file documented as of this encounter Procedures Procedure Name Priority Date/Time Associated Diagnosis Comments SCAN - LABS 05/15/2024 documented in this encounter Results * SCAN - LABS (05/15/2024) us Provider Scanning Final Result documented in this encounter Visit Diagnoses Not on filedocumented in this encounter Care Teams Missing Persons Investigator Relationship Specialty Start Date End Date Rachel Pineda MD PCP - General 06/02/20 Rachel Pineda MD Beam Racker 06/02/20 documented as of this encounter
== END 2024-10-18 07:32 | disposition home or self-care (01) ==
LOC: ANHIMG 07:33
PROVIDERS: PCP Family Medicine; Visit Provider Family Medicine
DX: Z12.31 Encounter for screening mammogram for malignant neoplasm of breast (principal)
CPT/HCPCS: 77063; 77067